=== PATIENT | male | born 1945 | race Caucasian/White ===

== ENCOUNTER 2018-10-17 11:17 | Day surgery (SDC) | payer MEDICARE, OTHER ==
--- NOTE | 2018-10-12 10:08 | HP ---
CC: Dr. Trenton Prince * HISTORY AND PHYSICAL: DATE OF PLANNED ADMISSION AND SURGERY: 10/17/18 HISTORY OF PRESENT ILLNESS: Mr. Cooney is a 72-year-old white male who is admitted with a symptomatic large left spermatocele for surgical excision. Mr. Cooney was referred to my office by Dr. Trenton Prince because of a 3 weeks' history of progressive painful left scrotal enlargement. The pain was radiating to the left inguinal area. He did not have any associated voiding symptoms. There is no past history of any scrotal trauma or scrotal surgery. The patient was evaluated by Dr. Prince, who started him on a course of Bactrim because of possible epididymitis. He also ordered scrotal ultrasound which showed a large left spermatocele. No other abnormalities were noted. I evaluated the patient in my office on 10/09/18. I reviewed the scrotal ultrasound and performed a physical examination and the findings were consistent with a multiloculated left spermatocele measuring about 10 cm in diameter. Because of the size of the spermatocele and its symptomatic nature, the patient decided to proceed with a left spermatocelectomy. PAST HISTORY: Relevant for carcinoma of the prostate for which he underwent a robotic radical prostatectomy at the [facility] in October 2004. He has done very well and has had no recurrent disease and his PSA has remained 0. He has normal voiding and normal erectile function. PAST MEDICAL HISTORY AND SYSTEM REVIEW: He has history of coronary artery disease which is managed medically and the patient was found not to be a candidate for revascularization. He was evaluated on 10/05/18 by his billet cutter, Dr. Job Farooq, at the [facility]. I am including a copy of his consultation note. The patient was cleared for the surgery by Dr. Farooq. Dr. Farooq also felt that it is safe for him to discontinue the Plavix in preparation for the procedure. He has a relatively good exercise tolerance. The patient is otherwise in good health. MEDICATIONS: The patient is maintained on the following medications: 1. Lisinopril 10 mg daily. 2. Metoprolol 25 mg daily. 3. One baby aspirin. 4. Nitroglycerin sublingual as needed. 5. Vitamin D, vitamin B12, folic acid, and magnesium supplements. 6. Plavix, discontinued pre op. ALLERGIES: He has no allergies to medications. FAMILY HISTORY: Negative for diseases. SOCIAL HISTORY: He is a nonsmoker. PHYSICAL EXAMINATION GENERAL: Pleasant, healthy, and fit-looking white male, who looks good for his age. VITAL SIGNS: Blood pressure 120/80, pulse of 60. LUNGS: Clear. HEART: Regular and rhythmic. No murmurs. ABDOMEN: Soft. No masses, no tenderness, and no CVA tenderness. EXTERNAL GENITALIA: He is circumcised. There is a large bilobular cystic mass occupying the upper left hemiscrotum and extending into the lower inguinal area measuring about 10 cm in diameter. It is moderately tender to exam. It is consistent with a left spermatocele. The testicle is felt inferior to the above mass and feels otherwise normal. No inguinal hernias noted. The right scrotal contents feel normal. EXTREMITIES: No edema. IMPRESSION: 1. Symptomatic large left spermatocele. 2. History of prostate carcinoma, status post radical prostatectomy with good results. 3. Coronary artery disease. Stable with good exercise tolerance on medical treatment. Cleared by his Infantryman for this surgery. PLAN: For left spermatocelectomy. I discussed the operation with the patient and his . Some of the potential complications including infection and hematoma were discussed. All their questions were answered. [id number] #: [id number] KEN
[~2018-10-17 11:17] MED LIST: Buffered Lidocaine 0.9% SYRIN* 5 ML/SYR SYRINGE INTRADERM ONE; Lactated Ringers 1000 ML Bag* 1,000 ML IV SCH
[2018-10-17] MEDS ORDERED: ceFAZolin 2 GM PREMIX in ORs 2 GM/50 ML BAG IVPB ONE (12:14)
[2018-10-17] MEDS ORDERED: Bupivacaine 0.5%* 50 ML VIAL ONE (12:57)
[2018-10-17] MEDS ORDERED: fentaNYL* 50 MCG/ML 2 ML VIAL (100 MCG VIAL) ONE ×2 (13:29→16:04)
[2018-10-17] MEDS ORDERED: Dexamethasone IV* 4 MG/ML 1 ML (4 MG) ONE (13:38)
[2018-10-17] MEDS ORDERED: Propofol* 10 MG/ML 20 ML BTL ONE (13:38)
[2018-10-17] MEDS ORDERED: Ondansetron INJ* 2 MG/ML VIAL ONE (13:38)
[2018-10-17] MEDS ORDERED: Naloxone* 0.4 MG/ML 1 ML VIAL IV PRN (13:57)
[2018-10-17] MEDS ORDERED: oxyCODONE/Acetamin 5/325 MG* TAB PO PRN (13:57)
[2018-10-17] MEDS ORDERED: Lidocaine 2% PF * 5 ML VIAL ONE (14:47)
[2018-10-17] MEDS ORDERED: oxyCODONE/Acetamin 5/325 MG* TAB ONE (16:04)
[2018-10-17] MEDS ORDERED: HYDROmorphone INJ1* 1 MG/ML SYRINGE ONE (16:07)
[2018-10-17] MEDS: HYDROmorphone INJ1* 1 MG/ML SYRINGE IV PRN ×2 (16:10→16:20)
[2018-10-17 16:20] VITALS: BP 137/87
--- NOTE | 2018-10-17 22:24 | OP ---
CC: Dr. Trenton Prince * DATE OF OPERATION: 10/17/18 - [facility] DATE OF : 43 SURGEON: Dr. Oliver. ANESTHESIOLOGIST: Dr. Reyes. ANESTHESIA: General. PRE-OP DIAGNOSIS: Symptomatic left spermatocele. POST-OP DIAGNOSIS: Symptomatic left spermatocele. OPERATIVE PROCEDURE: 1. Left scrotal exploration. 2. Left spermatocelectomy and left epididymectomy. INDICATION FOR PROCEDURE: Mr. Cooney is a 72-year-old white male who was referred by Dr. Prince because of 3- to 4-weeks' history of progressive left scrotal enlargement and left scrotal pain. The condition was significantly bothersome, interfering with his physical activities. Scrotal ultrasound confirmed the presence of a large left spermatocele. No other abnormalities were noted. Because of the above history and findings and the symptomatic nature of his condition, surgical exploration and excision was recommended. PATHOLOGY: Upon left scrotal exploration, there was a 7 cm left spermatocele. The testicle looked normal. There were no intratesticular masses. No hydrocele and no inguinal hernias were noted. DESCRIPTION OF PROCEDURE: After successful general anesthesia, the patient was placed in the supine position and was prepped and draped for scrotal exploration. A transverse incision was carried in the anterior mid hemiscrotum and was deepened through the dartos muscle. The tunica vaginalis was identified and was dissected and then opened. The testicle and the attached spermatocele were delivered through the incision. Careful inspection showed no other significant pathology. The epididymis was redundant and was adherent to the spermatocele. The spermatic cord and the spermatic vessels coursing over the spermatocele were identified. They were carefully dissected and peeled off the spermatocele and preserved. The spermatocele was then dissected all the way to its origin from the testis and the epididymis. The spermatocele was then excised intact and sent for pathology. The redundant epididymis was then excised and its stump tied with 4-0 Vicryl tie. The spermatic vessels were all intact and the testis had normal vascularity and appearance. The tunica vaginalis was then everted and approximated to itself using running suture of 4-0 Vicryl. Good hemostasis was then achieved. The scrotal cavity was irrigated with saline. A Regina drain was left in the scrotal cavity and brought out through the lower aspect of the scrotum. The testis was then replaced in the scrotal cavity. The scrotal incision was then closed using running 4-0 Vicryl for the dartos muscle and interrupted 4-0 chromic sutures for the skin. A total of 8 cc of 0.5% Marcaine without epinephrine was injected in the incision for postoperative analgesia. The Regina drain was transfixed to the skin with a Prolene suture. A dressing was applied. The patient tolerated the procedure well and left the operating room in good condition. BLOOD LOSS: The blood loss was negligible. SPECIMEN: The specimen was left spermatocele and left epididymis. COUNTS: All the counts were correct. [id number]/CPS #: [id number] MTDD
== END 2018-10-17 16:53 | disposition home or self-care (01) ==
LOC: OR 11:17
PROVIDERS: ATTEND Urology
DX: N43.41 Spermatocele of epididymis, single (principal); Z85.46 Personal history of malignant neoplasm of prostate; I25.10 Atherosclerotic heart disease of native coronary artery without angina pectoris; I10 Essential (primary) hypertension; R06.02 Shortness of breath; Z79.01 Long term (current) use of anticoagulants; K21.9 Gastro-esophageal reflux disease without esophagitis; M19.90 Unspecified osteoarthritis, unspecified site
CPT/HCPCS: 88304; 88305; A9270-GY; J0690; J1100; J1170; J2405; J2704; J3010

== ENCOUNTER 2020-02-17 14:52 | Inpatient (IN) | payer MEDICARE, OTHER ==
--- NOTE | 2020-02-17 15:12 | ED ---
HPI Chest Pain - HPI Summary HPI Summary: 74 y/o M with hx MIs and 13 stents brought in by EMS c/o 12/09 mid sternal chest pain and shortness of breath starting today with exertion. Hx chest pain with exertion. Today, patient was ambulating up stair steps when he developed mid sternal chest pain and shortness of breath. He states his symptoms today similar to previous MIs. Patient took NTG and aspirin 324 mg x5 with some improvement in symptoms. Last stents placed here 4 years ago. Patient is followed by Dr. Farooq at [facility] in [place]. Medications reviewed. Patient is on Plavix. Allergies reviewed. - History of Current Complaint Time Seen by Provider: 02/17/20 14:54 Hx Obtained From: Patient Onset/Duration: Started Hours Ago, Still Present Timing: Constant Current Severity: Mild Pain Intensity: 2 Pain Scale Used: 0-10 Numeric Chest Pain Location: Mid Sternal Aggravating Factor(s): Exertion Alleviating Factor(s): NTG 123, EMS Tx - aspirin 324 mg Associated Signs and Symptoms: Positive: Shortness of Breath - Additional Pertinent History Primary Care Physician: [id number] - Allergy/Home Medications Allergies/Adverse Reactions: Allergies Allergy/AdvReac Type Severity Reaction Status Date / Time DAIRY Allergy Diarrhea Uncoded 09/04/19 09:43 Home Medications: Home Medications Atorvastatin* [Lipitor 80 MG*] 80 mg PO 2100 tab 08/04/16 [Rx Confirmed ] Aspirin 81 mg CHEW TAB* 81 mg PO QAM 10/12/18 [History Confirmed 02/17/20] Cyanocobalamin (Vitamin B-12) [Vitamin B-12] 1,000 mcg SL QAM 10/12/18 [History Confirmed 02/17/20] Clopidogrel TAB* [Plavix TAB*] 75 mg PO DAILY 02/17/20 [History Confirmed ] Cyclosporine 0.05% OPHTH (NF) [Restasis 0.05% OPHTH] 1 drop BOTH EYES BID [History Confirmed 02/17/20] Lisinopril TAB* [Prinivil TAB*] 10 mg PO DAILY 02/17/20 [History Confirmed 02/16] Metoprolol Succinate XL TAB* [Toprol XL TAB*] 50 mg PO DAILY 02/17/20 [History Confirmed 02/17/20] Multivitamins/Minerals TAB* [Theragran/minerals TAB*] 1 tab PO DAILY 02/17/20 [ History Confirmed 02/17/20] Nitroglycerin TAB 0.4 MG* 0.4 mg SL Q5M PRN 02/17/20 [History Confirmed 02/17/20 ] OXcarbazepine TAB(*) [Trileptal 300 mg TAB(*)] 300 mg PO BID 02/17/20 [History Confirmed 02/17/20] PMH/Surg Hx/FS Hx/Imm Hx Endocrine/Hematology History: Denies: Hx Diabetes Cardiovascular History: Reports: Hx Coronary Artery Disease - 11 STENTS FROM 1997 - 2011 ON PLAVIX, Hx Hypertension - CONTROL WITH MEDICATION, Hx Myocardial Infarction - x2, Other Cardiovascular Problems/Disorders - PROGRESSIVE HEART DISEASE / CHOLESTEROL CONTROL WITH MEDS Denies: Hx Pacemaker/ICD GI History: History: Reports: Other Problems/Disorders - HISTORY OF PROSTATE CANCER AND SPERMATOCELE Musculoskeletal History: Reports: Hx Arthritis - GENERALIZED, Other Musculoskeletal History - HX OF POLIO A CHILD Sensory History: Reports: Hx Contacts or Glasses - GLASSES Opthamlomology History: Reports: Hx Contacts or Glasses - GLASSES Neurological History: Reports: Hx Headaches - CONTROL WITH MEDICATATION, Hx Nerve Disease - TRIGEMINAL NEURALGIA, Other Neuro Impairments/Disorders - HISTORY OF POLIO A CHILD - Surgical History Surgical History: Yes Surgery Procedure, Year, and Place: 2016 stents. 2005 LAPAROSCOPIC PROSTATECTOMY, [place], [place]. 1997 - 2011 CARDIAC STENTS X 11, [facility], [facility]. ABDOMINAL HERNIA REPAIR. 2009 LEFT HAND SURGERY, [facility]. BILATERAL CORRECTIVE FOOT SURGERY, [facility]. LEFT TOTAL KNEE [place]. TRIGIMINAL PROCEDURE 3 YEARS AGO [place]. LAMINECTOMY MAIXMILIANO 40 YEARS AGO. TONISLECTOMY A CHILD. APPENDECTOMY A CHILD Hx Anesthesia Reactions: No - Family History Family History: No FHx of malignant hyperthermia. No FHx of Anesthesia Reaction - Social History Alcohol Use: Daily Substance Use Type: Reports: None Hx Tobacco Use: Yes Smoking Status (MU): Former Smoker Have You Smoked in the Last Year: No Review of Systems Positive: Chest Pain Positive: Shortness Of Breath All Other Systems Reviewed And Are Negative: Yes Physical Exam - Summary Physical Exam Summary: Constitutional: Well-developed, Well-nourished, Alert. (-) Distressed Skin: Warm, Dry HENT: Normocephalic; Atraumatic Eyes: Conjunctiva normal Neck: Musculoskeletal ROM normal neck. (-) JVD, (-) Stridor, (-) Nuchal rigidity Cardio: Rhythm regular, rate normal, Heart sounds normal; Intact distal pulses; Radial pulses are 2+ and symmetric. (-) Murmur Pulmonary/Chest wall: Effort normal. (-) Respiratory distress, (-) Wheezes, (-) Rales Abd: Soft, (-) tenderness, (-) Distension, (-) Guarding, (-) Rebound Musculoskeletal: (-) Edema Lymph: (-) Cervical adenopathy Neuro: Alert, Oriented x3 Psych: Mood and affect Normal Triage Information Reviewed: Yes Vital Signs Reviewed: Yes Procedures - Sedation Patient Received Moderate/Deep Sedation with Procedure: No Diagnostics - Laboratory Result Diagrams: 02/17/20 15:25 02/17/20 15:25 Lab Statement: Any lab studies that have been ordered have been reviewed, and results considered in the medical decision making process. - EKG 1515 Cardiac Rate: NL - 80 BPM EKG Rhythm: Sinus Rhythm EKG Comparison: No Significant Change - 2016 Summary of EKG Findings: An EKG at 1515 reveals normal sinus rhythm 80 BPM. No STEMI. No acute changes. When compared to 2016, no significant change. ED physician has reviewed and interpreted this EKG. 1620 Cardiac Rate: NL - 75 BPM EKG Rhythm: Sinus Rhythm EKG Comparison: No Significant Change - From earlier today Summary of EKG Findings: An EKG at 1620 reveals normal sinus rhythm 75 BPM. No change from earlier EKG. ED physician has reviewed and interpreted this EKG. Re-Evaluation - Re-Evaluation First Eval Re-Evaluation Time: 16:18 - aware of troponin 0.27 Second Eval Re-Evaluation Time: 16:19 - will check repeat EKG Chest Pain Course/Dx - Course Course Of Treatment: 74 y/o male w hx CAD and STEMI p/w CP. - PE well appearing. NAD. EKG appears similar to prior in 2016 after cath. STEMI in 2016 had elevations in ant/lateral leads. Patient s/p nitro and aspirin with some improvement in pain. Is reporting some SOB which he attributes to CP and wearing facemask. - labs w troponin 0.27, repeat EKG unchanged, no STEMI. Pain improved at this time. Cardiology aware of patient, medicine to admit for NSTEMI /unstable angina. - Diagnoses Provider Diagnoses: Chest pain, NSTEMI (non-ST elevated myocardial infarction) - Provider Notifications Discussed Care Of Patient With: Jaciel Blakely - Agrees to consult. 1625 Dr. Leal agrees to admit patient. Time Discussed With Above Provider: 16:14 - Critical Care Time Critical Care Time: 30-74 min - Upon my evaluation, this patient had a high probability of imminent or life-threatening deterioration due to NSTEMI which required my direct attention, intervention, and personal management. I have personally provided 35 minutes of critical care time exclusive of time spent on separately billable procedures. Time includes review of laboratory data, radiology results, discussion with consultants, and monitoring for potential decompensation. Interventions were performed as documented above. Critical Care Statement: Critical care time is provided exclusive of any time spent performing procedures. Discharge ED - Sign-Out/Discharge Documenting (check all that apply): Patient Departure - Discharge Plan Condition: Stable Disposition: ADMITTED TO [facility] Referrals: Trenton Prince MD [Primary Care Provider] - - Billing Disposition and Condition Condition: STABLE Disposition: Admitted to [facility] - Attestation Statements Document Initiated by Scribe: Yes Documenting Scribe: Sandra Moralez Provider For Whom Ryan is Documenting (Include Credential): Capo Sanders MD Scribe Attestation: I, Sandra Moralez, scribed for Capo Sanders MD on 02/17/20 at 1639. Scribe Documentation Reviewed: Yes Provider Attestation: The documentation as recorded by the scribeSandra accurately reflects the service I personally performed and the decisions made by me, Capo Sanders MD Status of Scribe Document: Viewed
[2020-02-17 15:46] LABS: ABS Basophils 0.1 10^3/ul (0-0.2); ABS Eosinophils 0.3 10^3/ul (0-0.6); ABS Lymphocytes 0.8 10^3/ul (1.0-4.8); ABS Monocytes 0.8 10^3/ul (0-0.8); ABS Neutrophils 5.8 10^3/ul (1.5-7.7); Eosinophil % 3.3 %; Hematocrit 37 % (42-52); Hemoglobin 13.2 g/dL (14.0-18.0); Lymphocyte % 10.6 %; Mean Corpuscular HGB Conc 35 g/dL (31-36); Mean Corpuscular Hemoglobin 35 pg (27-31); Mean Corpuscular Volume 100 fL (80-94); Mean Platelet Volume 7.1 fL (7.4-10.4); Platelet Count 141 10^3/uL (150-450); Red Blood Count 3.76 10^6 /uL (4.18-5.48); Red Cell Distribution Width 14 % (10-15); White Blood Count 7.8 10^3/uL (3.5-10.8)
--- OUTSIDE RECORDS SUMMARY | 2020-02-17 15:58 | XMS REPORT | Continuity of Care Document ---
:1945 External Reference #:[id number] Author Name Trenton Prince M.D. (transmitted by agent of provider Rose Zhao) Address [address] [place] [address] Care Team Providers Name Role Phone Kathleen Reynoso MD - Neurology Care Team Information Hardware Engineering Manager Chai Candelaria MD - Orthopaedic Care Team Information Hardware Engineering Manager [phone] Surgery Delaney Schilling MD - Surgery of Care Team Information Hardware Engineering Manager the Hand Kemi Ma - Dermatology Care Team Information Hardware Engineering Manager [phone] Micheal Chavarria MD - Care Team Information Hardware Engineering Manager [phone] Gastroenterology Brad Flores - Neurological Surgery Care Team Information Hardware Engineering Manager Problems Active Problems Provider Date Coronary arteriosclerosis Trenton Prince M.D. Onset: 12/07/2011 Malignant tumor of prostate Trenton Prince M.D. Onset: 05/29/2013 Trigeminal neuralgia Trenton Prince M.D. Onset: 05/29/2013 Social History Type Date Description Comments Sex Unknown Tobacco Use Start: Unknown End: Former Cigarette Smoker 1/2 x 4 years Unknown Pack Daily Cigarette Use Quit - Age 20 Tobacco Use Start: Unknown End: Patient is a former smoker Unknown Exercise Type/Frequency Does not exercise Allergies, Adverse Reactions, Alerts Description No Known Drug Allergies Medications Active Medications SIG Qnty Indications Ordering Date Provider Nitroglycerin Place One Tablet 25tabs Trenton Prince M.D. 12/03/2018 0.4mg Under The Tongue Tablets Sub Every 5 Minutes For Up To 3 Doses as Needed For Chest Pain. If Chest Pain Still Persists Contact 911 Lisinopril 1 by mouth every 90tabs Quan 08/24/2016 5mg Tablets day MD Zachary Vitamin B12 1 po qd Trenton Prince M.D. 2011 100mcg Tablets Atorvastatin Calcium 1 by mouth every 90tabs Trenton Prince M.D. 12/05/2011 80mg night at bedtime Tablets Plavix one tablet by 90tabs Trenton Prince M.D. 12/05/2011 75mg Tablets mouth daily Magnesium Trenton Prince M.D. 02/03/2009 Tablets Toprol XL take one tablet 90tabs Trenton Prince M.D. 10/09/2006 50mg Tablets ER by mouth every 24HR day Folic Acid 1 qd Trenton Prince M.D. 09/09/2006 1mg Tablets Aspirin 1 PO qd 30units Trenton Prince M.D. 09/09/2006 81mg Ec Tab Iron Unknown Tablets Carbamazepine ER Take 3 Tablets Unknown 100mg By Mouth Daily Tablets ER 12HR In The Morning And 3 Tablets Every Night Immunizations CPT Code Status Date Vaccine Lot # [id number] Given 07/23/2019 Influenza Vaccine High Dose PF [id number] 88181 Given 07/09/2018 Influenza Vaccine High Dose PF [id number] 57686 Given 08/04/2017 Influenza Vaccine High Dose PF [id number] 37602 Given 08/02/2016 Influenza Virus Vaccine, Quadrivalent, 3 Yr > Quad, Preserv Free 00475 Given 07/07/2015 Influenza Vaccine High Dose PF [id number] 52378 Given 12/12/2014 Prevnar-13 Pneumococcal Conjugate Vaccine [id number] 17710 Given 08/12/2014 Influenza Virus Vaccine, Quadrivalent, 3 Yr > [id number] Quad, Preserv Free 20874 Given 09/03/2013 Influenza Vaccine-Preservative Free 3 Yrs And [id number] Above 73392 Given 07/27/2012 Influenza Vaccine-Preservative Free 3 Yrs And [id number] Above 44217 Given 2011 Tdap (Adacel) [id number] 42184 Given 06/27/2011 Zoster Vaccine [id number] 61811 Given 06/27/2011 Influenza Vaccine-Preservative Free 3 Yrs And [id number] Above 45494 Given 09/06/2010 Pneumovax 23 (PPSV23) 65+ years or high risk 2 to [id number] 63 year old 26424 Given 09/06/2010 Influenza Vaccine-Preservative Free 3 Yrs And [id number] Above 80431 Given 09/11/2008 Influenza Virus Vaccine, 3 Yrs And Above [id number] 65900 Given 08/24/2007 Influenza Virus Vaccine, 3 Yrs And Above [id number] 49254 Given 08/11/2007 DT (Adult) [id number] 27906 Given 08/29/2006 Influenza Virus Vaccine, 3 Yrs And Above [id number] Vital Signs Date Vital Result Comment 02/17/2020 1:23pm Weight 185.00 lb Weight 83.916 kg BP Systolic 127 mmHg BP Diastolic 86 mmHg Heart Rate 68 /min Body Temperature 97.8 F 06/06/2019 2:30pm Weight 168.00 lb Weight 76.205 kg BP Systolic 128 mmHg BP Diastolic 78 mmHg Heart Rate 68 /min Body Temperature 97.8 F Respiratory Rate 16 /min O2 % BldC Oximetry 97 % Results Test Acquired Date Facility Test Result H/L Range Note Laboratory test 02/12/2020 [facility] Hemoglobin A1c 5.3 % Normal 4.0-5.6 1 finding [phone] PSA Screening < 0.008 ng/mL Normal 0-4.000 2 CBC Auto 02/12/2020 [facility] White Blood 6.2 10^3/ uL Normal 3.5-10.8 Diff [phone] Count Red Blood Count 3.91 10^6/uL Low 4.18-5.48 Hemoglobin 13.7 g/dL Low 14.0-18.0 Hematocrit 39 % Low 42-52 Mean Corpuscular Volume 100 fL High 80-94 Mean Corpuscular Hemoglobin 35 pg High 27-31 Mean Corpuscular HGB Conc 35 g/dL Normal 31-36 Red Cell Distribution Width 14 % Normal 10-15 Platelet Count 195 10^3/uL Normal 150-450 Mean Platelet Volume 7.4 fL Normal 7.4-10.4 Abs Neutrophils 4.0 10^3/uL Normal 1.5-7.7 Abs Lymphocytes 1.0 10^3/uL Normal 1.0-4.8 Abs Monocytes 0.6 10^3/uL Normal 0-0.8 Abs Eosinophils 0.5 10^3/uL Normal 0-0.6 Abs Basophils 0.1 10^3/uL Normal 0-0.2 Abs Nucleated RBC 0.0 10^3/uL Granulocyte % 64.2 % Lymphocyte % 16.4 % Monocyte % 10.0 % Eosinophil % 8.1 % Basophil % 1.3 % Nucleated Red Blood Cells % 0.0 Comp Metabolic 02/12/2020 [facility] Sodium 134 mmol/ L Low 135-145 Panel [phone] Potassium 4.4 mmol/L Normal 3.5-5.0 Chloride 101 mmol/L Normal 101-111 Co2 Carbon Dioxide 29 mmol/L Normal 22-32 Anion Gap 4 mmol/L Normal 2-11 Glucose 101 mg/dL High 70-100 Blood Urea Nitrogen 17 mg/dL Normal 6-24 Creatinine 0.85 mg/dL Normal 0.67-1.17 BUN/Creatinine Ratio 20.0 Normal 8-20 Calcium 9.2 mg/dL Normal 8.6-10.3 Total Protein 6.4 g/dL Normal 6.4-8.9 Albumin 3.9 g/dL Normal 3.2-5.2 Globulin 2.5 g/dL Normal 2-4 Albumin/Globulin Ratio 1.6 Normal 1-3 Total Bilirubin 0.60 mg/dL Normal 0.2-1.0 Alkaline Phosphatase 88 U/L Normal 34-104 Alt 28 U/L Normal 7-52 Ast 28 U/L Normal 13-39 Egfr Non- 87.9 >60 Egfr 106.3 >60 3 Laboratory test 02/12/2020 [facility] Vitamin D 54.6 ng/mL High 20-50 4 finding [phone] Total 25(Oh) Vitamin B12 664 pg/mL Normal 180-914 5 Lipid Profile 02/12/2020 [facility] Triglycerides 115 mg/dL 6 (Trig/Chol/HDL) [phone] Cholesterol 185 mg/dL 7 HDL Cholesterol 56.7 mg/dL 8 LDL Cholesterol 105 mg/dL 9 1 Therapeutic target for the treatment of diabetes mellitus patients is <7% HBA1C, and in selective patients <6.0%. Please refer to [place] [employer] Association diabetic care guidelines for further information. 2 Serum levels of PSA measured using the Kelin Hytle DXI Hybritech immunoassay should not be interpreted as absolute evidence of the presence or absence of disease. The PSA value should be used in conjunction with other pertinent clinical diagnostic procedures. A PSA value in the range of 0.1 to 0.6 ng/ml is indeterminate if being used as an indicator of recurrent or residual disease. The values obtained with different assay methods or kits cannot be used interchangeably. 3 Because ethnic data is not always readily available, this report includes an eGFR for both -Americans and non- Americans. The National Kidney Disease Education Program (NKDEP) does not endorse the use of the MDRD equation for patients that are not between the ages of 18 and 70, are , have extremes of body size, muscle mass, or nutritional status, or are non- or non-. According to the National Kidney Foundation, irrespective of diagnosis, the stage of the disease is based on the level of kidney function: Stage Description GFR(mL/min/1.73 m(2)) 1 Kidney damage with normal or decreased GFR 90 2 Kidney damage with mild decrease in GFR 60-89 3 Moderate decrease in GFR 30-59 4 Severe decrease in GFR 15-29 5 Kidney failure <15 (or dialysis) 4 Total 25-Hydroxyvitamin D2 and D3 (25-OH-VitD) <10 ng/mL (severe deficiency) 10-19 ng/mL (mild to moderate deficiency) 20-50 ng/mL (optimum levels) 51-80 ng/mL (increased risk of hypercalciuria) >80 ng/mL (toxicity possible) 5 Normal Range 180 to 914 Indeterminate Range 145 to 180 Deficient Range <145 6 Desirable: <150 Borderline High: 150-199 High: 200-499 Very High: >500 7 Desirable: <200 Borderline High: 200-239 High: >239 8 Low: <40 Desirable: 40-60 High: >60 9 Desirable: <100 Near Optimal: 100-129 Borderline High: 130-159 High: 160-189 Very High: >189 Procedures Date Code Description Status 10/30/2006 [id number] Colonoscopy Completed Medical Devices Description No Information Available Encounters Type Date Location Provider Dx Diagnosis Office Visit 02/17/2020 [facility] Trenton Prince M.D. R07.9 Chest pain , 1:15p unspecified Assessments Date Code Description Provider 02/17/2020 R07.9 Chest pain, unspecified Trenton Prince M.D. Plan of Treatment 02/17/2020 - Trenton Prince M.D.R07.9 Chest pain, unspecifiedComments:Given his known CAD and the severity of his symptoms he will call an ambulance.I called to notify the ER. Functional Status Description No Information Available Mental Status Description No Information Available Referrals Description No Information Available
[2020-02-17 16:17] LABS: Troponin I 0.27 ng/mL (<0.03)
[2020-02-17 16:28] LABS: ALT 25 U/L (7-52); AST 25 U/L (13-39); Albumin 3.7 g/dL (3.2-5.2); Albumin/Globulin Ratio 1.5 (1-3); Alkaline Phosphatase 77 U/L (34-104); Anion Gap 5 mmol/L (2-11); BUN/Creatinine Ratio 26.5 (8-20); Blood Urea Nitrogen 22 mg/dL (6-24); CO2 Carbon Dioxide 29 mmol/L (22-32); Chloride 103 mmol/L (101-111); EGFR African American 109.3 (>60); EGFR Non-African American 90.3 (>60); Globulin 2.5 g/dL (2-4); Glucose 80 mg/dL (70-100); Potassium 4.4 mmol/L (3.5-5.0); Sodium 137 mmol/L (135-145); Total Protein 6.2 g/dL (6.4-8.9)
[2020-02-17] MEDS ORDERED: Nitro 2% OINT* (Nitroglycerin) 1 INCH/PAK PAK TOPICAL ONE (17:17)
[2020-02-17] MEDS ORDERED: Morphine 4 MG/ML VIAL (1 ml) 4 MG/ML VIAL IV ONE (17:17)
[2020-02-17] MEDS ORDERED: Heparin VIAL(*) 5000 UNITS/ML VIAL (FIVE THOUSAND) IV SCH (18:00)
[2020-02-17] MEDS ORDERED: Iohexol 350* (CONTRAST) 500 ML MDV IV ONE (18:17)
--- NOTE | 2020-02-17 19:05 | HP ---
CC: Dr. Prince; [facility]* HISTORY AND PHYSICAL: DATE OF ADMISSION: 02/17/20 PRIMARY CARE PROVIDER: Dr. Prince, [facility]. CHIEF COMPLAINT: Chest pain. HISTORY OF PRESENT ILLNESS: Mr. Cooney is a 74-year-old male who has an extensive cardiac history, in that he states he has 13 stents, his most recent KS was in 2016, who presents to the emergency room with complaint of chest pain. The patient states he started his day using the treadmill for approximately 20 minutes. At that point, he had no discomfort. He was outside and worked for approximately 2 to 3 hours. He then started to get ready for his telemedicine visit with Dr. Prince. He needed to grab something from the basement, went down 10 to 12 steps and then walked back up these steps and in doing so developed severe pressure in his chest without radiation. He felt very short of breath. He had no associated nausea or vomiting. He felt complete exhaustion and slight disorientation. He took, he believes, 1 to 2 nitroglycerin tablets which helped the discomfort some. He then had his telemedicine visit with Dr. Prince after sitting quiet for approximately 15 to 20 minutes. He did feel somewhat better at that point. During the visit with Dr. Prince, it was recommended that he contact 911 and be brought to the emergency room. The patient states that he continues to have chest pressure and shortness of breath at this time. He states that he feels as if something is wrong. The symptoms he is experiencing at this point feels similar but not exactly the same as his very first KS. The patient took 5 baby aspirin today. In unrelated complaint the patient states that he has had progressive weakness of the right arm and leg, worse in the legs than the arm over the last 10-1/2 months. In addition he states that his voice had become difficult to get out over the last 1 year. He has an appointment with Dr. Barragan coming up for early february. Also of note, in November 2019 while he was in [place], he fell and sustained a hematoma to the right hip. He notes that the hematoma spread to just down below his knee. He notes the leg was swollen at that time. He states that he was relatively immobile while recovering from that hematoma. Approximately 4 weeks ago, he drove back from [place]. He did not notice any swelling in his legs. PAST MEDICAL HISTORY: 1. STEMI in 2016. 2. Hypertension. 3. Hyperlipidemia. 4. Trigeminal neuralgia. 5. History of prostate cancer. 6. Right upper and lower extremity weakness. PAST SURGICAL HISTORY: 1. Bilateral cataract extraction. 2. Left total knee arthroplasty. 3. Bilateral toe surgery. 4. Ventral hernia repair. 5. Spermatocelectomy. 6. Epididymectomy. 7. Robotic radical prostatectomy. 8. Left hand surgery. 9. Tonsillectomy. 10. Appendectomy. 11. Laminectomy. MEDICATIONS: 1. Lipitor 80 mg p.o. daily. 2. Folic acid mg p.o. daily. 3. Magnesium 250 mg p.o. daily. 4. Baby aspirin (has been on hold since November, though the patient took 5 today). 5. Metoprolol succinate 50 mg p.o. daily. 6. Lisinopril 10 mg p.o. daily. 7. Vitamin B12 1000 mcg p.o. daily. 8. Oxcarbazepine 300 mg p.o. twice daily. 9. Nitroglycerin 0.4 mg SL q.5 minutes p.r.n. chest pain. 10. Probiotic 1 cap p.o. daily. 11. Plavix 75 mg p.o. daily. ALLERGIES: No known drug allergies. He is lactose intolerant. FAMILY HISTORY: Mom around the age of 60 from ALS. Dad is . He had early coronary artery disease with first KS in his 50s. He of leukemia. SOCIAL HISTORY: The patient smoked for a very brief period of time approximately 53 years ago. He drinks 1 alcoholic beverage daily. 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 He is . He has 2 children. He indicates that his , Julianne, will be his healthcare proxy. REVIEW OF SYSTEMS: Complete 11-system review of systems is obtained. Pertinent positives and negatives were as per HPI and otherwise negative. PHYSICAL EXAMINATION GENERAL: The patient is a well-developed, elderly male, seen sitting up in the stretcher, appearing to be in no acute distress. VITAL SIGNS: Blood pressure 124/72, pulse 83, respirations 14, temperature 97.6 , O2 sat 97% on room air. HEENT: Pupils are equal. Extraocular muscles are intact. Oropharynx is clear and moist. There is no submandibular, cervical or supraclavicular adenopathy. PULMONARY: Lungs are clear to auscultation bilaterally. CARDIAC: Normal S1 and S2. Regular rate and rhythm. I do no appreciate any murmurs. There is trace to 1+ right lower extremity edema. There is no edema of the left lower extremity. ABDOMEN: Bowel sounds are present. Abdomen is soft, nontender, and nondistended. MUSCULOSKELETAL: There is no cyanosis or clubbing of the digits. There is full active range of motion of all 4 extremities. SKIN: Warm and dry. There are no rashes. NEUROLOGIC: Cranial nerves II through XII are grossly intact. Sensation is intact to light touch. Strength in the upper extremities is normal on the left. Question some functional weakness on the right. Lower extremity strength is not tested. PSYCH: The patient is alert. He is oriented x3. He does become tearful when I informed him that his troponin could indicate that he is having an KS if positive. DIAGNOSTIC STUDIES/LAB DATA: WBC 7.8, hemoglobin 13.2, hematocrit 37, and platelets 141. Sodium 137, potassium 4.4, chloride 103, CO2 of 29, BUN 22, creatinine 0.83, glucose 80, calcium 9.0, bilirubin 0.4, AST 25, ALT 25, alk phos 77, troponin 0.27, albumin 3.7. EKG reveals normal sinus rhythm. Question minimal ST elevations in lead V3. There are otherwise nonspecific T wave abnormalities laterally. Chest x-ray to my interpretation appears clear without any infiltrate. ASSESSMENT AND PLAN: Mr. Cooney is a 74-year-old male with an extensive cardiac history, hypertension, and hyperlipidemia, who presented to the emergency room with complaints of chest pain after walking up a flight of stairs. 1. Ehc-NB-wrxoaapxd myocardial infarction. At this point, my suspicion is the patient is having a lhy-RA-ylvafkwvi myocardial infarction. His troponin is elevated at 0.27. He continues to have chest pain at this point. He will be treated with nitro paste as well as morphine p.r.n. pain. We will see if we can get him pain-free. He will be started on a heparin drip as well. He will also continue on aspirin and his Plavix. Of note, the patient did have recent long distance travel approximately 4 weeks ago from [place] and prior to that he was laid up for quite some time after falling and having a hematoma involving in his right leg putting DVT and pulmonary embolism as a high possibility is causing his symptoms at this point. The patient will undergo CTA of the chest now. If the CTA of the chest is negative, Cardiology consultation will be requested. If his pain is not controlled and he is negative for pulmonary embolism, we will request evaluation by Cardiology this evening for consideration of cardiac catheterization. Lipid panel has been ordered for the morning as is the hemoglobin A1c. As above, he will continue on his aspirin, Plavix, Lipitor, metoprolol, and lisinopril. 2. Hypertension. Blood pressure is under excellent control. Continue lisinopril and metoprolol. 3. Hyperlipidemia. Continue Lipitor high dose. Lipid profile will be obtained in the morning. 4. Trigeminal neuralgia. Continue oxcarbazepine 300 mg twice daily. 5. DVT prophylaxis: According to the Adult Thrombosis Prophylaxis Risk Factor Assessment Guide, the patient has a total risk factor score of 4, making him high risk. He is on a heparin drop for presumed uem-AT-pmhebtmyb myocardial infarction and this will act as a DVT prophylaxis. 6. Code status is full. TIME SPENT: Sixty-five minutes was spent admitting this patient. [id number]/CPS #: [id number] KEN
[2020-02-17] MEDS: Heparin DRIP 25,000 UNITS(*) 25,000 UNITS/500 ML BAG IV SCH (19:24)
[2020-02-17 19:29] LABS: Troponin I 0.57 ng/mL (<0.03)
[2020-02-17] MEDS ORDERED: NS 0.9% 1000 ML** 1,000 ML IV SCH (19:30)
[2020-02-17] MEDS: OXcarbazepine TAB(*) 300 MG PO SCH (20:46)
[2020-02-17] MEDS: Atorvastatin* 80 MG TAB PO SCH (20:47)
[2020-02-17] MEDS ORDERED: Nitro 2% OINT* (Nitroglycerin) 1 INCH/PAK PAK TOPICAL SCH (23:30)
[2020-02-17] MEDS ORDERED: Nitro Patch/OINT Remove TOPICAL SCH (23:30)
[2020-02-18] MEDS: Morphine INJ* 2 MG/ML 1 ML SYRINGE (TWO MG - NEW SYRINGE VERSION) IV PRN ×2 (06:55→13:38)
[2020-02-18] MEDS ORDERED: Perflutren Lipid Microsphere* 3 ML VIAL ONE (08:09)
[2020-02-18] MEDS: Clopidogrel TAB* 75 MG PO SCH (08:46)
[2020-02-18] MEDS: Aspirin 81 mg CHEW TAB* 81 MG TAB.CHEW PO SCH (08:46)
[2020-02-18] MEDS: Metoprolol Succinate XL TAB* 50 MG PO SCH (08:46)
[2020-02-18] MEDS: Lisinopril TAB* 10 MG PO SCH (08:47)
[2020-02-18] MEDS: Multivitamins/Minerals TAB PO SCH (08:48)
[2020-02-18] MEDS: OXcarbazepine TAB(*) 300 MG PO SCH ×2 (08:48→19:55)
--- NOTE | 2020-02-18 09:21 | ECHO ---
*[facility]* [place] [address] Fax #: [phone] Transthoracic Echocardiogram Patient: Romeo Cooney : 1945 Study Date: 02/18/2020 Age: 74 Gender: M HR: 84 bpm Height: 70 in /177.8 cm BSA: 1.92 m^2 Weight: 164.7 lb /74.8 kg BMI: 23.7 kg/m^2 *Information Technology Security Analyst: * Chuyita Anderson *Referring Physician: * Russell Boone *Reading Physician: * Jaciel Blakely MD Indications: Pulmonary Embolism History: Coronary artery disease. Risk factors: Former tobacco use. Hypertension. Dyslipidemia. Labs, prior tests, procedures, and surgery: Catheterization. There was a stenosis which was treated with a stent. Conclusions Summary: - Left ventricle: Systolic function is at the lower limits of normal. The estimated ejection fraction is 50-55%. Wall motion is normal; there are no regional wall motion abnormalities. - Right ventricle: Systolic function is normal. - Mitral valve: There is trace regurgitation. - Aortic valve: Transvalvular velocity is within the normal range. There is no evidence of stenosis. - Tricuspid valve: There is mild regurgitation. - Pulmonary arteries: Systolic pressure is mildly to moderately increased, estimated to be 45 mm Hg. - Impressions: The study is unchanged since the study of 08/01/2016. Study data: Transthoracic echocardiogram. Procedure: Transthoracic echocardiography was performed. Image quality was suboptimal. Intravenous Definity , 2 mlswas administered. Complete 2D, spectral Doppler, and color flow Doppler. Location: Bedside. Patient status: Inpatient. Patient room number: 442-02. Comparison is made to the study of 08/01/2016. Findings Left ventricle: The cavity size is normal. Wall thickness is at the upper limits of normal. Systolic function is at the lower limits of normal. The estimated ejection fraction is 50-55%. Wall motion is normal; there are no regional wall motion abnormalities. Left ventricular diastolic function parameters are normal. Right ventricle: The cavity size is normal. Systolic function is normal. Ventricular septum: The ventricular septum is normal. Left atrium: The atrium is moderately dilated. Right atrium: The atrium is mildly dilated. Atrial septum: No defect or patent foramen ovale is identified. Mitral valve: The valve is structurally normal. There is no evidence of stenosis. There is trace regurgitation. Aortic valve: The valve is trileaflet. The leaflets are mildly calcified. Cusp separation is normal. Transvalvular velocity is within the normal range. There is no evidence of stenosis. There is no regurgitation. Tricuspid valve: The valve is structurally normal. There is no evidence of stenosis. There is mild regurgitation. Pulmonic valve: The valve is structurally normal. There is no evidence of stenosis. There is trace regurgitation. Aorta: The aortic root appears normal. The aortic arch appears normal. Pericardium: There is no significant pericardial effusion. Pulmonary arteries: Systolic pressure is mildly to moderately increased, estimated to be 45 mm Hg. Systemic veins: Inferior vena cava: The vessel is normal in size. There is (>= 50%) respiratory change in the IVC dimension. Pulmonary veins: The Pulmonary veins appear normal. Measurements Left ventricle Value Ref Aortic valve Value Ref RAFAT, LAX 4.4 cm 4.2 - 5.8 Peak v, S 1.01 m/sec ----- ESD, LAX 2.9 cm 2.5 - 4.0 VTI, S 22.7 cm ----- FS, LAX 34 % 25 - 43 Mean grad, S 2.0 mm Hg ----- PW, ED, LAX (H) 1.2 cm 0.6 - 1.0 Peak grad, S 4.0 mm Hg ----- E', lat salomon, TDI (L) 5.4 cm/sec >=10.0 LVOT/AV, VTI ratio 0.76 -- --- E/e', lat salomon, 13 ARVIND, VTI 2.38 cm^2 ----- TDI ARVIND, Vmax 2.46 cm^2 ----- LVOT Value Ref Mitral valve Value Ref Diam, S 2.00 cm Peak E 0.69 m/sec ----- Area 3.1 cm^2 Peak A 0.77 m/sec ----- Peak adriano, S 0.79 m/sec Decel time 235 ms ----- VTI, S 17.2 cm Peak E/A ratio 0.9 ----- Mean grad, S 1 mm Hg SV 54 ml Pulmonic valve Value Ref Peak v, S 0.63 m/sec ----- Ventricular septum Value Ref Peak grad, S 2.0 mm Hg ----- IVS, ED (H) 1.2 cm 0.6 - 1.0 Tricuspid valve Value Ref Right ventricle Value Ref TR peak v (H) 3.17 m/sec <=2.8 RAFAT, LAX 3.3 cm Peak RV-RA grad, S 40 mm Hg ----- RAFAT minor ax, (H) 3.9 cm 1.9 - 3.5 Max TR adriano 3.17 m/sec ----- A4C mid Aortic root Value Ref Left atrium Value Ref Root diam 3.7 cm <4.1 AP dim, ES 3.70 cm 3.00 - 4.00 Ascending aorta Value Ref ML dim, A4C 4.9 cm AAo AP diam, S 3.2 cm ----- SI dim, A4C 6.2 cm Vol/bsa, ES, 1-p (H) 47 ml/m^2 12 - 37 Aortic arch Value Ref A4C Arch diam 3.6 cm ----- Right atrium Value Ref Inferior vena cava Value Ref SI dim, ES (H) 5.4 cm 3.4 - 5.3 Diam 2.5 cm ----- ML dim, ES, A4C (H) 5.1 cm 2.6 - 4.4 SI dim, ES, A4C (H) 5.4 cm 3.4 - 5.3 Legend: (L) and (H) santana values outside specified reference range. Prepared and electronically signed by Jaciel Blakely MD 02/18/2020 09:20
[2020-02-18 09:32] LABS: ABS Basophils 0.1 10^3/ul (0-0.2); ABS Eosinophils 0.3 10^3/ul (0-0.6); ABS Lymphocytes 0.8 10^3/ul (1.0-4.8); ABS Monocytes 0.5 10^3/ul (0-0.8); ABS Neutrophils 4.7 10^3/ul (1.5-7.7); Eosinophil % 5.3 %; Hematocrit 39 % (42-52); Hemoglobin 13.3 g/dL (14.0-18.0); Lymphocyte % 12.7 %; Mean Corpuscular HGB Conc 34 g/dL (31-36); Mean Corpuscular Hemoglobin 34 pg (27-31); Mean Corpuscular Volume 101 fL (80-94); Mean Platelet Volume 6.8 fL (7.4-10.4); Nucleated Red Blood Cells % 0.1; Platelet Count 165 10^3/uL (150-450); Red Blood Count 3.87 10^6 /uL (4.18-5.48); Red Cell Distribution Width 14 % (10-15); White Blood Count 6.5 10^3/uL (3.5-10.8)
[2020-02-18 10:08] LABS: Calcium 8.8 mg/dL (8.6-10.3); EGFR African American 115.7 (>60); EGFR Non-African American 95.6 (>60); Potassium 4.1 mmol/L (3.5-5.0)
--- NOTE | 2020-02-18 10:30 | PN ---
Subjective Date of Service: 02/18/20 Interval History: Pt reports that he continues to have pain with deep inspiration and required morphine to tolerated deep breaths. pt denies chest pain presently. pt reports also that his son has hx of blood clot in his leg. Denies constant chest pain or pressure presently. Pt also reports that he has been getting out of bed to use urinal at bedside and became extremely SOB. pt informed that he should not be getting out of bed without assistance as he has a great bleeding risk presently and should not risk falling. Family History: Unchanged from Admission Social History: Unchanged from Admission Past Medical History: Unchanged from Admission Objective Active Medications: Aspirin (Aspirin 81 Mg Chew Tab*) 81 mg PO QAM [facility] Last Admin: 02/18/20 08:46 Dose: 81 mg Atorvastatin Calcium (Lipitor*) 80 mg PO 2100 [facility] Last Admin: 02/17/20 20:47 Dose: 80 mg Clopidogrel Bisulfate (Plavix Tab*) 75 mg PO DAILY [facility] Last Admin: 02/18/20 08:46 Dose: 75 mg Heparin Sodium (Porcine) (Heparin Vial(*)) 0 units IV .FOR HEPARIN BOLUSES [facility] Last Admin: 02/17/20 19:23 Dose: 4,000 units Heparin Sodium/Dextrose (Heparin Drip 25,000 Units(*)) 25,000 units in 500 mls @ 0 mls/hr IV PER RATE [facility]; Protocol Last Admin: 02/17/20 19:24 Dose: 18 mls/hr Lisinopril (Prinivil Tab*) 10 mg PO DAILY [facility] Last Admin: 02/18/20 08:47 Dose: 10 mg Metoprolol Succinate (Toprol Xl Tab*) 50 mg PO DAILY [facility] Last Admin: 02/18/20 08:46 Dose: 50 mg Morphine Sulfate (Morphine Inj (Syringe))*) 2 mg IV Q4H PRN PRN Reason: PAIN - SEVERE Last Admin: 02/18/20 06:55 Dose: 2 mg Multivitamins/Minerals (Theragran/Minerals Tab*) 1 tab PO DAILY [facility] Last Admin: 02/18/20 08:48 Dose: 1 tab Oxcarbazepine (Trileptal Tab(*)) 300 mg PO BID [facility] Last Admin: 02/18/20 08:48 Dose: 300 mg Vital Signs - 8 hr 02/18/20 02/18/20 02/18/20 03:09 06:55 07:15 Temperature 97.6 F 98.6 F Pulse Rate 60 60 Respiratory 20 16 18 Rate Blood Pressure 123/78 136/85 (mmHg) O2 Sat by Pulse 98 100 Oximetry 02/18/20 08:06 Temperature Pulse Rate Respiratory 20 Rate Blood Pressure (mmHg) O2 Sat by Pulse Oximetry Oxygen Devices in Use Now: None Appearance: Elderly gentleman sitting up in bed, appearing stated age. pt is watching TV and reading newspaper. Does not appear to be in any distress. Eyes: No Scleral Icterus, PERRLA Ears/Nose/Mouth/Throat: NL Teeth, Lips, Gums, Clear Oropharnyx, Mucous Membranes Moist Neck: NL Appearance and Movements; NL JVP, Trachea Midline, No Thyroid Enlargement, Masses Respiratory: Symmetrical Chest Expansion and Respiratory Effort, Clear to Auscultation, - - Shallow but clear respirations in all lung fieldss Cardiovascular: NL Sounds; No Murmurs; No JVD, RRR, No Edema Abdominal: NL Sounds; No Tenderness; No Distention, No Hepatosplenomegaly Lymphatic: No Cervical Adenopathy Extremities: No Edema, No Clubbing, Cyanosis Skin: No Rash or Ulcers, No Nodules or Sclerosis Neurological: Alert and Oriented x 3, NL Sensation, NL Muscle Strength and Tone Result Diagrams: 02/18/20 09:26 02/18/20 09:26 Assess/Plan/Problems-Billing Assessment: - Patient Problems (1) Pulmonary embolism Current Visit: Yes Comment: -Saddle Embolism -Heparin IV -Dyspnea relieved by Morphine and oxygen. -Elevated troponin level (0.57) likely related to PE due to right sided heart strain consistant with CTA findings. (2) HTN (hypertension) Current Visit: Yes Comment: -Continue home dose metoprolol, Lisinopril (3) Weakness of right side of body Current Visit: Yes Comment: Pt reports progressively worsening problem overt the past year. Pt has worked with PT in the past. Will obtain PT consult before DC. -has appointment with Dr. Barragan (4) HLD (hyperlipidemia) Current Visit: Yes Comment: -Continue Atorvastatin (5) CAD (coronary artery disease) Current Visit: Yes Comment: -EF 50-55% -Atorvastatin (6) DVT prophylaxis Current Visit: Yes Comment: -IV heparin for PE (7) Full code status Current Visit: Yes Status and Disposition: Guarded
[2020-02-18] MEDS ORDERED: Artificial Tears* 15 ML BTL BOTH EYES PRN (11:28)
[2020-02-18] MEDS: Atorvastatin* 80 MG TAB PO SCH (19:55)
[2020-02-19] MEDS: Heparin DRIP 25,000 UNITS(*) 25,000 UNITS/500 ML BAG IV SCH (01:41)
[2020-02-19 06:38] LABS: ABS Basophils 0.1 10^3/ul (0-0.2); ABS Eosinophils 0.3 10^3/ul (0-0.6); ABS Lymphocytes 0.9 10^3/ul (1.0-4.8); ABS Monocytes 0.6 10^3/ul (0-0.8); ABS Neutrophils 4.8 10^3/ul (1.5-7.7); Eosinophil % 4.6 %; Hematocrit 37 % (42-52); Hemoglobin 12.9 g/dL (14.0-18.0); Lymphocyte % 13.4 %; Mean Corpuscular HGB Conc 35 g/dL (31-36); Mean Corpuscular Hemoglobin 35 pg (27-31); Mean Corpuscular Volume 100 fL (80-94); Mean Platelet Volume 7.2 fL (7.4-10.4); Platelet Count 176 10^3/uL (150-450); Red Blood Count 3.74 10^6 /uL (4.18-5.48); Red Cell Distribution Width 14 % (10-15); White Blood Count 6.7 10^3/uL (3.5-10.8)
[2020-02-19 06:47] LABS: Blood Urea Nitrogen 14 mg/dL (6-24); EGFR African American 112.4 (>60); EGFR Non-African American 92.9 (>60)
--- NOTE | 2020-02-19 09:13 | PN ---
Subjective Date of Service: 02/19/20 Interval History: 74 year old man with DVT/PE after long car ride. Chest pain is improving and mild. Not short of breath at rest. Appetite is good. Has had 1 year right leg and arm weakness. 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 Family History: Unchanged from Admission Social History: Unchanged from Admission Past Medical History: Unchanged from Admission Objective Active Medications: Aspirin (Aspirin 81 Mg Chew Tab*) 81 mg PO QAM [facility] Last Admin: 02/18/20 08:46 Dose: 81 mg Atorvastatin Calcium (Lipitor*) 80 mg PO 2100 [facility] Last Admin: 02/18/20 19:55 Dose: 80 mg Clopidogrel Bisulfate (Plavix Tab*) 75 mg PO DAILY [facility] Last Admin: 02/18/20 08:46 Dose: 75 mg Heparin Sodium (Porcine) (Heparin Vial(*)) 0 units IV .FOR HEPARIN BOLUSES [facility] Last Admin: 02/17/20 19:23 Dose: 4,000 units Heparin Sodium/Dextrose (Heparin Drip 25,000 Units(*)) 25,000 units in 500 mls @ 0 mls/hr IV PER RATE [facility]; Protocol Last Admin: 02/19/20 01:41 Dose: 15 mls/hr Lisinopril (Prinivil Tab*) 10 mg PO DAILY [facility] Last Admin: 02/18/20 08:47 Dose: 10 mg Metoprolol Succinate (Toprol Xl Tab*) 50 mg PO DAILY [facility] Last Admin: 02/18/20 08:46 Dose: 50 mg Morphine Sulfate (Morphine Inj (Syringe))*) 2 mg IV Q4H PRN PRN Reason: PAIN - SEVERE Last Admin: 02/18/20 13:38 Dose: 2 mg Multivitamins/Minerals (Theragran/Minerals Tab*) 1 tab PO DAILY [facility] Last Admin: 02/18/20 08:48 Dose: 1 tab Oxcarbazepine (Trileptal Tab(*)) 300 mg PO BID [facility] Last Admin: 02/18/20 19:55 Dose: 300 mg Polyvinyl Alcohol (Polyvinyl Alcohol 1.4% Opth*) 1 drop BOTH EYES Q2H PRN PRN Reason: DRY EYE Vital Signs - 8 hr 02/19/20 02/19/20 03:56 08:35 Temperature 36.5 C 36.6 C Pulse Rate 56 58 Respiratory 16 16 Rate Blood Pressure 114/79 131/79 (mmHg) O2 Sat by Pulse 98 100 Oximetry Oxygen Devices in Use Now: Nasal Cannula Eyes: No Scleral Icterus, PERRLA Ears/Nose/Mouth/Throat: Clear Oropharnyx Respiratory: Symmetrical Chest Expansion and Respiratory Effort, Clear to Auscultation Cardiovascular: NL Sounds; No Murmurs; No JVD, RRR Abdominal: NL Sounds; No Tenderness; No Distention Extremities: No Edema Skin: No Rash or Ulcers Neurological: Alert and Oriented x 3, - - strength decreased right handgrip and 4/5 right quad/ta/gastroc. 5/5 on left. sensation intact to light touch bilaterally Result Diagrams: 02/19/20 06:06 02/19/20 06:06 Assess/Plan/Problems-Billing Assessment: - Patient Problems (1) Pulmonary embolism Current Visit: Yes Status: Acute Code(s): I26.99 - OTHER PULMONARY EMBOLISM WITHOUT ACUTE COR PULMONALE SNOMED Code(s): 14123121 Comment: Saddle embolism, no RV stain on echo, hemodynamically stable. Heme/ onc consult for anticoag management. (2) CAD (coronary artery disease) Current Visit: Yes Status: Acute Code(s): I25.10 - ATHSCL HEART DISEASE OF [place] CORONARY ARTERY W/O ANG PCTRS SNOMED Code(s): 40722857 Comment: -EF 50-55% -Atorvastatin, aspirin, plavix (3) Weakness of right side of body Current Visit: Yes Status: Acute Code(s): R53.1 - WEAKNESS SNOMED Code(s) : 635236328 Comment: >1 year, with falls and with C spine disease. Will do MRI L spine hereand neuro evluation. Some concern with anticoagulation and falls due to weakness so will obtain imaging here. (4) Full code status Current Visit: Yes Status: Acute Code(s): Z78.9 - OTHER SPECIFIED HEALTH STATUS SNOMED Code(s): 596116097 Status and Disposition: Guarded
[2020-02-19] MEDS: Clopidogrel TAB* 75 MG PO SCH (09:15)
[2020-02-19] MEDS: Multivitamins/Minerals TAB PO SCH (09:15)
[2020-02-19] MEDS: Lisinopril TAB* 10 MG PO SCH (09:16)
[2020-02-19] MEDS: Aspirin 81 mg CHEW TAB* 81 MG TAB.CHEW PO SCH (09:16)
[2020-02-19] MEDS: OXcarbazepine TAB(*) 300 MG PO SCH ×2 (09:16→21:11)
[2020-02-19] MEDS: Metoprolol Succinate XL TAB* 50 MG PO SCH (09:16)
[2020-02-19 10:04] LABS: Troponin I 0.07 ng/mL (<0.03)
[2020-02-19] MEDS: Enoxaparin(*) 80 MG/0.8 ML SYR SUBCUT SCH ×2 (10:07→21:12)
--- NOTE | 2020-02-19 10:18 | CONSULT ---
Consultation - Reason for Consultation Reason for Consultation: saddle PE w +troponin Ordering Provider: Alec Buckley MD Chief Complaint: chest pain History of Present Illness: 74 yo M w an extensive cardiac history (13 stents) presenting with acute onset chest pain and found to have a saddle PE and positive troponin levels. Paresh's history starts ~10 months ago when he was at PT for lower back pain and noted on testing to have significant decline in his muscle strength in his right upper and lower extremities. He was referred to Dr. Reynoso and had a brain MRI (unremarkable) and cervical spine MRI, which did show disease at C4/C5. He was advised to continue his PT in [place] and return for follow up on arrival back in [place]. On 's day he tripped over his dog's leash and fell, sustaining a massive hematoma which required 5 days hospitalization and multiple transfusions. His plavix was held initially, but resumed, and he is currently on aspirin and plavix. He reports he was completely immobile at first , however with aggressive PT was back to riding his bike 5 miles daily and walking in [place] every day. Four weeks ago he drove back to [place] stopping every 3-4 hours to walk the dog. Two weeks ago he tripped with the dog again, making him think that it is actually his weakness and gait instability more than a true mechanical fall. He continues however to be active and has been riding his bike and walking on his treadmill every day. On the day of presentation he walked 20 mins on his treadmill, worked outside in the yard for 3 hours and then walked down to the basement. On his way back up he developed severe nonradiating chest pressure that resolved with nitroglycerin and rest. He had telemed (planned visit) with his PCP and was advised to call 911. In the ER he was noted to have nonspecific ST changes and a positive troponin. CT angiogram (which I have personally reviewed) was notable for a saddle pulmonary embolism (as well as 2 small nonspecific nodules and a left sided infiltrate). He was starting on a heparin drip and we are asked to consult. Of note, his son Db had a DVT and PEs after a minor knee surgery and had a full negative hypercoag work up. Paresh has a personal history of prostate cancer in 2004 sp prostatectomy and his PSA as of 2 weeks ago was undetectable. He has a very remote mild smoking history. He currently is chest pain free. He does report since yesterday evening a numbness of his right foot, but no pain in the leg or swelling. He also has long standing mild macrocytic anemia that is stable over the last 8-10 years. Allergies/Medications Medication: Aspirin (Aspirin 81 Mg Chew Tab*) 81 mg PO QAM [facility] Last Admin: 02/19/20 09:16 Dose: 81 mg Atorvastatin Calcium (Lipitor*) 80 mg PO 2100 [facility] Last Admin: 02/18/20 19:55 Dose: 80 mg Clopidogrel Bisulfate (Plavix Tab*) 75 mg PO DAILY [facility] Last Admin: 02/19/20 09:15 Dose: 75 mg Enoxaparin Sodium (Lovenox(*)) 80 mg SUBCUT Q12H [facility] Last Admin: 02/19/20 10:07 Dose: 80 mg Lisinopril (Prinivil Tab*) 10 mg PO DAILY [facility] Last Admin: 02/19/20 09:16 Dose: 10 mg Metoprolol Succinate (Toprol Xl Tab*) 50 mg PO DAILY [facility] Last Admin: 02/19/20 09:16 Dose: 50 mg Morphine Sulfate (Morphine Inj (Syringe))*) 2 mg IV Q4H PRN PRN Reason: PAIN - SEVERE Last Admin: 02/18/20 13:38 Dose: 2 mg Multivitamins/Minerals (Theragran/Minerals Tab*) 1 tab PO DAILY [facility] Last Admin: 02/19/20 09:15 Dose: 1 tab Oxcarbazepine (Trileptal Tab(*)) 300 mg PO BID [facility] Last Admin: 02/19/20 09:16 Dose: 300 mg Polyvinyl Alcohol (Polyvinyl Alcohol 1.4% Opth*) 1 drop BOTH EYES Q2H PRN PRN Reason: DRY EYE Allergies/Adverse Reactions: Allergies Allergy/AdvReac Type Severity Reaction Status Date / Time DAIRY Allergy Diarrhea Uncoded 09/04/19 09:43 History - Past Medical History Other History: CAD sp multiple stents, most recently 2016. HTN. hyperlip. trigeminal neuralgia. prostate CA. cataract extraction. left total knee replacement. bilateral toe surgery. hernia repair. spermatocelectomy. radical prostatectomy. epididymectomy. tonsillectomy. appendectomy. laminectomy. left hand surgery - Family History Other Family History: son DVT/PE. father leukemia - Social History Other Social History: remote very mild tobacco use as a young adult Review of Systems - Review of Systems General Comments: denies weight loss, blood in stool, current chest pain, BRANDON. +right upper and LE weakness and right foot numbness otherwise neg ROS Physical Exam - Physical Exam Physical Examination: Vital Signs Temp Pulse Resp BP Pulse Ox 97.9 F 58 16 131/79 100 02/19/20 08:35 02/19/20 08:35 02/19/20 08:35 02/19/20 08:35 02/19/20 08:35 lying flat in bed in NAD perr eomi op moist CTA bl s1 s2 nl soft nt no hsm no le edema no BRANDON 4+/5 RUE and RLE strength scattered ecchymoses Results - Lab Results Lab Results: 02/17/20 02/17/20 02/17/20 15:25 15:25 19:01 WBC 7.8 RBC 3.76 L Hgb 13.2 L Hct 37 L MCV 100 H MCH 35 H MCHC 35 RDW 14 Plt Count 141 L MPV 7.1 L Neut % (Auto) 74.5 Lymph % (Auto) 10.6 Rogers % (Auto) 10.6 Eos % (Auto) 3.3 Baso % (Auto) 1.0 Absolute Neuts (auto) 5.8 Absolute Lymphs (auto) 0.8 L Absolute Monos (auto) 0.8 Absolute Eos (auto) 0.3 Absolute Basos (auto) 0.1 Absolute Nucleated RBC 0.0 Nucleated RBC % 0.0 APTT Sodium 137 Potassium 4.4 Chloride 103 Carbon Dioxide 29 Anion Gap 5 BUN 22 Creatinine 0.83 Est GFR ( Amer) 109.3 Est GFR (Non-Af Amer) 90.3 BUN/Creatinine Ratio 26.5 H Glucose 80 Hemoglobin A1c Calcium 9.0 Total Bilirubin 0.40 AST 25 ALT 25 Alkaline Phosphatase 77 Troponin I 0.27 H* 0.57 H* Total Protein 6.2 L Albumin 3.7 Globulin 2.5 Albumin/Globulin Ratio 1.5 Triglycerides Cholesterol LDL Cholesterol HDL Cholesterol 02/17/20 02/18/20 02/18/20 19:01 01:40 09:26 WBC RBC Hgb Hct MCV MCH MCHC RDW Plt Count MPV Neut % (Auto) Lymph % (Auto) Rogers % (Auto) Eos % (Auto) Baso % (Auto) Absolute Neuts (auto) Absolute Lymphs (auto) Absolute Monos (auto) Absolute Eos (auto) Absolute Basos (auto) Absolute Nucleated RBC Nucleated RBC % APTT 35.6 91.7 H Sodium 136 Potassium 4.1 Chloride 103 Carbon Dioxide 30 Anion Gap 3 BUN 15 Creatinine 0.79 Est GFR ( Amer) 115.7 Est GFR (Non-Af Amer) 95.6 BUN/Creatinine Ratio 19.0 Glucose 140 H Hemoglobin A1c Calcium 8.8 Total Bilirubin AST ALT Alkaline Phosphatase Troponin I Total Protein Albumin Globulin Albumin/Globulin Ratio Triglycerides 88 Cholesterol 170 LDL Cholesterol 97 HDL Cholesterol 55.0 02/18/20 02/18/20 02/18/20 09:26 09:26 09:26 WBC 6.5 RBC 3.87 L Hgb 13.3 L Hct 39 L MCV 101 H MCH 34 H MCHC 34 RDW 14 Plt Count 165 MPV 6.8 L Neut % (Auto) 72.4 Lymph % (Auto) 12.7 Rogers % (Auto) 8.2 Eos % (Auto) 5.3 Baso % (Auto) 1.4 Absolute Neuts (auto) 4.7 Absolute Lymphs (auto) 0.8 L Absolute Monos (auto) 0.5 Absolute Eos (auto) 0.3 Absolute Basos (auto) 0.1 Absolute Nucleated RBC 0.0 Nucleated RBC % 0.1 APTT 70.4 H Sodium Potassium Chloride Carbon Dioxide Anion Gap BUN Creatinine Est GFR ( Amer) Est GFR (Non-Af Amer) BUN/Creatinine Ratio Glucose Hemoglobin A1c 5.3 Calcium Total Bilirubin AST ALT Alkaline Phosphatase Troponin I Total Protein Albumin Globulin Albumin/Globulin Ratio Triglycerides Cholesterol LDL Cholesterol HDL Cholesterol 02/18/20 02/19/20 02/19/20 15:51 06:06 06:06 WBC 6.7 RBC 3.74 L Hgb 12.9 L Hct 37 L MCV 100 H MCH 35 H MCHC 35 RDW 14 Plt Count 176 MPV 7.2 L Neut % (Auto) 72.1 Lymph % (Auto) 13.4 Rogers % (Auto) 9.1 Eos % (Auto) 4.6 Baso % (Auto) 0.8 Absolute Neuts (auto) 4.8 Absolute Lymphs (auto) 0.9 L Absolute Monos (auto) 0.6 Absolute Eos (auto) 0.3 Absolute Basos (auto) 0.1 Absolute Nucleated RBC 0.0 Nucleated RBC % 0.0 APTT 57.2 H Sodium Potassium Chloride Carbon Dioxide Anion Gap BUN 14 Creatinine 0.81 Est GFR ( Amer) 112.4 Est GFR (Non-Af Amer) 92.9 BUN/Creatinine Ratio Glucose Hemoglobin A1c Calcium Total Bilirubin AST ALT Alkaline Phosphatase Troponin I 0.07 H* Total Protein Albumin Globulin Albumin/Globulin Ratio Triglycerides Cholesterol LDL Cholesterol HDL Cholesterol Assessment and Plan Impression: 74 yo M w CAD on dual antiplatelet agents w a new saddle PE. It is difficult to call this provoked given his fully mobile nature over the last 6 weeks ( despite being immobilized in mid November). Regardless, this was a massive PE with positive troponins and so I would recommend life long anticoagulation. The question of anticoagulant is the harder. I am very concerned about his progressive neurological decline and recent falling. Given this I do NOT feel that NOACs are the best option right now. If that improves or he starts reliably using an assist device we could reconsider. For now I would recommend BID lovenox for the next 3 weeks, and then could either go to coumadin or daily lovenox. He is hesitant to do coumadin and his is a nurse who could give him lovenox. He will discuss with his paediatric thoracic physician if he will still require dual antiplatelet agents in the setting of full dose anticoagulation and falls. I would also like to get a RLE doppler given his new numbness and PE. Finally , I would recommend inpatient neurology consultation to evaluate his progressive decline and falls of unclear etiology. If this is felt to be related to spinal stenosis which requires surgical intervention, this should be delayed for 3 months unless felt to be emergent.
[2020-02-19] MEDS ORDERED: Acetaminophen TAB* 325 MG PO ONE (18:29)
[2020-02-19] MEDS: Atorvastatin* 80 MG TAB PO SCH (21:11)
[2020-02-20] MEDS ORDERED: Acetaminophen TAB* 325 MG ONE (07:26)
[2020-02-20 07:36] LABS: ABS Basophils 0.1 10^3/ul (0-0.2); ABS Eosinophils 0.3 10^3/ul (0-0.6); ABS Lymphocytes 0.8 10^3/ul (1.0-4.8); ABS Monocytes 0.7 10^3/ul (0-0.8); ABS Neutrophils 5.5 10^3/ul (1.5-7.7); Eosinophil % 3.5 %; Hematocrit 39 % (42-52); Hemoglobin 13.7 g/dL (14.0-18.0); Lymphocyte % 11.4 %; Mean Corpuscular HGB Conc 35 g/dL (31-36); Mean Corpuscular Hemoglobin 35 pg (27-31); Mean Corpuscular Volume 99 fL (80-94); Mean Platelet Volume 7.4 fL (7.4-10.4); Platelet Count 217 10^3/uL (150-450); Red Blood Count 3.95 10^6 /uL (4.18-5.48); Red Cell Distribution Width 14 % (10-15); White Blood Count 7.4 10^3/uL (3.5-10.8)
[2020-02-20] MEDS: Clopidogrel TAB* 75 MG PO SCH (07:42)
[2020-02-20] MEDS: Metoprolol Succinate XL TAB* 50 MG PO SCH (07:42)
[2020-02-20] MEDS: Multivitamins/Minerals TAB PO SCH (07:42)
[2020-02-20] MEDS: Lisinopril TAB* 10 MG PO SCH (07:43)
[2020-02-20] MEDS: OXcarbazepine TAB(*) 300 MG PO SCH ×2 (07:43→21:10)
[2020-02-20] MEDS: Aspirin 81 mg CHEW TAB* 81 MG TAB.CHEW PO SCH (07:49)
[2020-02-20] MEDS: Enoxaparin(*) 80 MG/0.8 ML SYR SUBCUT SCH ×2 (10:08→21:10)
--- NOTE | 2020-02-20 12:16 | PN ---
Subjective Date of Service: 02/20/20 Interval History: 74 year old man with RLE DVT/PE he has right leg pain about the knee and ankle with slight numbness, has has 12+ months right leg weakness which is unchanged. Ice helps, not worse with weight bearing. No chest pain or trouble breathing. Family History: Unchanged from Admission Social History: Unchanged from Admission Past Medical History: Unchanged from Admission Objective Active Medications: Acetaminophen (Tylenol Tab*) 650 mg PO Q4H PRN PRN Reason: PAIN-MILD/TEMP >/= 100.4 Aspirin (Aspirin 81 Mg Chew Tab*) 81 mg PO QAM [facility] Last Admin: 02/20/20 07:49 Dose: 81 mg Atorvastatin Calcium (Lipitor*) 80 mg PO 2100 [facility] Last Admin: 02/19/20 21:11 Dose: 80 mg Clopidogrel Bisulfate (Plavix Tab*) 75 mg PO DAILY [facility] Last Admin: 02/20/20 07:42 Dose: 75 mg Enoxaparin Sodium (Lovenox(*)) 80 mg SUBCUT Q12H [facility] Last Admin: 02/20/20 10:08 Dose: 80 mg Lisinopril (Prinivil Tab*) 10 mg PO DAILY [facility] Last Admin: 02/20/20 07:43 Dose: 10 mg Metoprolol Succinate (Toprol Xl Tab*) 50 mg PO DAILY [facility] Last Admin: 02/20/20 07:42 Dose: 50 mg Morphine Sulfate (Morphine Inj (Syringe))*) 2 mg IV Q4H PRN PRN Reason: PAIN - SEVERE Last Admin: 02/18/20 13:38 Dose: 2 mg Multivitamins/Minerals (Theragran/Minerals Tab*) 1 tab PO DAILY [facility] Last Admin: 02/20/20 07:42 Dose: 1 tab Oxcarbazepine (Trileptal Tab(*)) 300 mg PO BID [facility] Last Admin: 02/20/20 07:43 Dose: 300 mg Polyvinyl Alcohol (Polyvinyl Alcohol 1.4% Opth*) 1 drop BOTH EYES Q2H PRN PRN Reason: DRY EYE Vital Signs - 8 hr 02/20/20 02/20/20 02/20/20 07:15 08:00 11:15 Temperature 36.5 C 36.5 C Pulse Rate 72 66 Respiratory 14 16 16 Rate Blood Pressure 107/81 109/65 (mmHg) O2 Sat by Pulse 100 100 Oximetry Oxygen Devices in Use Now: None, Nasal Cannula Appearance: no distress Eyes: PERRLA Ears/Nose/Mouth/Throat: NL Teeth, Lips, Gums, Mucous Membranes Moist Respiratory: Symmetrical Chest Expansion and Respiratory Effort, Clear to Auscultation Cardiovascular: NL Sounds; No Murmurs; No JVD, RRR Abdominal: NL Sounds; No Tenderness; No Distention Extremities: - - Right knee and ankle trace edema and warmth, non tender Skin: No Rash or Ulcers Neurological: Alert and Oriented x 3 Result Diagrams: 02/20/20 06:45 02/19/20 06:06 Assess/Plan/Problems-Billing Assessment: - Patient Problems (1) Pulmonary embolism Current Visit: Yes Status: Acute Code(s): I26.99 - OTHER PULMONARY EMBOLISM WITHOUT ACUTE COR PULMONALE SNOMED Code(s): 30536140 Comment: Saddle embolism, no RV stain on echo, hemodynamically stable. Appreciate Heme/onc consult for anticoag management. Continue lovenox [address] fu [address] Redmond for care home plans. (2) CAD (coronary artery disease) Current Visit: Yes Status: Acute Code(s): I25.10 - ATHSCL HEART DISEASE OF [place] CORONARY ARTERY W/O ANG PCTRS SNOMED Code(s): 21475642 Comment: Discussed with his primary insurance examiner, Dr Job Farooq ([place] ), he is >5 yrs out from PCI and since he will be anticoagulated, he recommends stopping plavix and continue ASA alone. Continue atorvastatin. (3) Weakness of right side of body Current Visit: Yes Status: Acute Code(s): R53.1 - WEAKNESS SNOMED Code(s) : 056696820 Comment: >1 year, with falls and with C spine disease. Will do MRI T/L spine and brain here. Some concern with anticoagulation and falls due to weakness so will obtain imaging here. Has neuro appt and Dr Jarvis will arrange outpatient EMG. (4) Full code status Current Visit: Yes Status: Acute Code(s): Z78.9 - OTHER SPECIFIED HEALTH STATUS SNOMED Code(s): 546955667 Status and Disposition: Guarded
[2020-02-20] MEDS: Atorvastatin* 80 MG TAB PO SCH (21:10)
[2020-02-20] MEDS: Acetaminophen TAB* 325 MG PO PRN (23:13)
[2020-02-21] MEDS: Acetaminophen TAB* 325 MG PO PRN ×3 (06:29→22:50)
--- NOTE | 2020-02-21 07:06 | PN ---
Hospitalist Progress Note Date of Service: 02/21/20 Received phone call for worsening R knee pain and swelling suspect r/t DVT will check RLE U/S to eval if any extension occuring of the clot. Discussed with attending. encouraged elevation of the lower extremity, Distal csm check intact , good pulse, good cap refil,
[2020-02-21 07:11] LABS: ABS Basophils 0.1 10^3/ul (0-0.2); ABS Eosinophils 0.2 10^3/ul (0-0.6); ABS Lymphocytes 0.7 10^3/ul (1.0-4.8); Eosinophil % 2.6 %; Hematocrit 38 % (42-52); Hemoglobin 12.9 g/dL (14.0-18.0); Mean Corpuscular HGB Conc 34 g/dL (31-36); Mean Corpuscular Hemoglobin 34 pg (27-31); Mean Corpuscular Volume 100 fL (80-94); Mean Platelet Volume 7.3 fL (7.4-10.4); Nucleated Red Blood Cells % 0.1; Platelet Count 222 10^3/uL (150-450); Red Blood Count 3.78 10^6 /uL (4.18-5.48); Red Cell Distribution Width 14 % (10-15); White Blood Count 7.9 10^3/uL (3.5-10.8)
[2020-02-21] MEDS: Metoprolol Succinate XL TAB* 50 MG PO SCH (07:49)
[2020-02-21] MEDS: OXcarbazepine TAB(*) 300 MG PO SCH ×2 (07:49→21:23)
[2020-02-21] MEDS: Lisinopril TAB* 10 MG PO SCH (07:50)
[2020-02-21] MEDS: Aspirin 81 mg CHEW TAB* 81 MG TAB.CHEW PO SCH (07:51)
[2020-02-21] MEDS: Multivitamins/Minerals TAB PO SCH (07:51)
[2020-02-21] MEDS: Enoxaparin(*) 80 MG/0.8 ML SYR SUBCUT SCH ×2 (10:03→21:22)
--- NOTE | 2020-02-21 12:04 | PN ---
Subjective Date of Service: 02/21/20 Interval History: . Patient reports he is feeling "much better with less knee pain". Still reports it feels a little more swollen than what it has been. he states this seem to happen after he started PT with gentle knee exercises. He denies any CP, SOB. No fever or chills. feels steady on his feet. Family History: Unchanged from Admission Social History: Unchanged from Admission Past Medical History: Unchanged from Admission Objective Active Medications: Acetaminophen (Tylenol Tab*) 650 mg PO Q4H PRN PRN Reason: PAIN-MILD/TEMP >/= 100.4 Last Admin: 02/21/20 06:29 Dose: 650 mg Aspirin (Aspirin 81 Mg Chew Tab*) 81 mg PO QAM [facility] Last Admin: 02/21/20 07:51 Dose: 81 mg Atorvastatin Calcium (Lipitor*) 80 mg PO 2100 [facility] Last Admin: 02/20/20 21:10 Dose: 80 mg Enoxaparin Sodium (Lovenox(*)) 80 mg SUBCUT Q12H [facility] Last Admin: 02/21/20 10:03 Dose: 80 mg Lisinopril (Prinivil Tab*) 10 mg PO DAILY [facility] Last Admin: 02/21/20 07:50 Dose: 10 mg Metoprolol Succinate (Toprol Xl Tab*) 50 mg PO DAILY [facility] Last Admin: 02/21/20 07:49 Dose: 50 mg Morphine Sulfate (Morphine Inj (Syringe))*) 2 mg IV Q4H PRN PRN Reason: PAIN - SEVERE Last Admin: 02/18/20 13:38 Dose: 2 mg Multivitamins/Minerals (Theragran/Minerals Tab*) 1 tab PO DAILY [facility] Last Admin: 02/21/20 07:51 Dose: 1 tab Oxcarbazepine (Trileptal Tab(*)) 300 mg PO BID [facility] Last Admin: 02/21/20 07:49 Dose: 300 mg Polyvinyl Alcohol (Polyvinyl Alcohol 1.4% Opth*) 1 drop BOTH EYES Q2H PRN PRN Reason: DRY EYE Vital Signs - 8 hr 02/21/20 02/21/20 02/21/20 08:00 08:12 11:47 Temperature 98.1 F 98.1 F Pulse Rate 66 65 Respiratory 20 20 20 Rate Blood Pressure 116/70 133/78 (mmHg) O2 Sat by Pulse 97 99 Oximetry Oxygen Devices in Use Now: None Appearance: well developed 74 yo male A+O x3 in NAD Eyes: PERRLA Ears/Nose/Mouth/Throat: Mucous Membranes Moist Respiratory: Symmetrical Chest Expansion and Respiratory Effort, Clear to Auscultation Cardiovascular: NL Sounds; No Murmurs; No JVD, RRR, No Edema Abdominal: NL Sounds; No Tenderness; No Distention Extremities: No Clubbing, Cyanosis, - - right knee appears mild-moderately swollen, no redness noted. Full ROM. sensation to LE intact Skin: No Rash or Ulcers, No Nodules or Sclerosis Neurological: Alert and Oriented x 3 Lines/Tubes/Other Access: Clean, Dry and Intact Peripheral IV Nutrition: Taking PO's Result Diagrams: 02/21/20 06:37 02/21/20 06:37 Assess/Plan/Problems-Billing Assessment: 74 year old man with a PMH of extensive cardiology history s/p 13 stents, most recent [place] 2016 who presented to the [facility] on 02/16 with c/o Chest Pain admitted for non-STEMI [place] with elevated troponin, found to have saddle PE and RLE DVT. 12+ months right leg weakness which is unchanged. - Patient Problems (1) Pulmonary embolism Comment: Saddle embolism, no RV stain on echo, hemodynamically stable. Appreciate Heme/onc consult for anticoag management. Continue lovenox [address] fu [address] Redmond for remote computer terminal operator plans. Nursing staff to teach patient how to inject lovenox (2) DVT (deep venous thrombosis) Comment: - right LE DVT - U/S repeated today after patient c/o of increasing pain in right knee - u/s shows persistant DVT with now small amount of fluid in the popiteal fossa. He reports much improvement throughout the day today with elevation. Is able to ambulate. - continue lovenox (3) CAD (coronary artery disease) Comment: [facility] discussed on [facility]/19 with his primary assembler musical equipment, Dr Job Farooq ([place]), he is >5 yrs out from PCI and since he will be anticoagulated, he recommends stopping plavix and continue ASA alone. Continue atorvastatin. Elevated troponins trending down -> thought to be secondary to PE (4) Weakness of right side of body Comment: >1 year, with falls and with C spine disease. MRI T/L spine and brain - Btain showing no acute intacranial process, lower lumbar MRI showing moderate to severe multilevel degenerative disc disease with neural foraminal narrowing. - Some concern with anticoagulation and falls due to weakness imaging was obtain here. - Has neuro appt next week and Dr Jarvis will arrange outpatient EMG. - PT eval (5) HLD (hyperlipidemia) Comment: -Continue Atorvastatin (6) HTN (hypertension) Comment: -Continue home dose metoprolol, Lisinopril (7) DVT prophylaxis Comment: -Lovenox (8) Full code status Status and Disposition: inpatient. stable. Plan for DC home - possibly tomorrow. Lovenox teaching today. Continue to monitor right knee overnight
[2020-02-21] MEDS: Atorvastatin* 80 MG TAB PO SCH (21:22)
[2020-02-22 06:47] LABS: ABS Eosinophils 0.3 10^3/ul (0-0.6); ABS Lymphocytes 0.9 10^3/ul (1.0-4.8); ABS Monocytes 0.6 10^3/ul (0-0.8); ABS Neutrophils 3.1 10^3/ul (1.5-7.7); Eosinophil % 5.8 %; Hematocrit 36 % (42-52); Hemoglobin 12.6 g/dL (14.0-18.0); Lymphocyte % 17.7 %; Mean Corpuscular HGB Conc 35 g/dL (31-36); Mean Corpuscular Hemoglobin 35 pg (27-31); Mean Corpuscular Volume 99 fL (80-94); Mean Platelet Volume 7.5 fL (7.4-10.4); Platelet Count 240 10^3/uL (150-450); Red Cell Distribution Width 13 % (10-15); White Blood Count 4.9 10^3/uL (3.5-10.8)
[2020-02-22 07:54] VITALS: BP 131/76
[2020-02-22] MEDS: OXcarbazepine TAB(*) 300 MG PO SCH (09:13)
[2020-02-22] MEDS: Lisinopril TAB* 10 MG PO SCH (09:14)
[2020-02-22] MEDS: Aspirin 81 mg CHEW TAB* 81 MG TAB.CHEW PO SCH (09:14)
[2020-02-22] MEDS: Metoprolol Succinate XL TAB* 50 MG PO SCH (09:14)
[2020-02-22] MEDS: Multivitamins/Minerals TAB PO SCH (09:14)
[2020-02-22] MEDS: Enoxaparin(*) 80 MG/0.8 ML SYR SUBCUT SCH (09:16)
--- NOTE | 2020-02-22 09:25 | DCNOTE ---
Subjective Date of Service: 02/22/20 Interval History: patient reports he feels ready to go home. Much improvement of right knee swelling in the last 24 hours. no further pain. continues to have some mild swelling. Elevated his knee which is helping. Denies SOB. No cough. No CP. denies fever or chills. No LE redness, or calf tenderness. Family History: Unchanged from Admission Social History: Unchanged from Admission Past Medical History: Unchanged from Admission Objective Active Medications: Acetaminophen (Tylenol Tab*) 650 mg PO Q4H PRN PRN Reason: PAIN-MILD/TEMP >/= 100.4 Last Admin: 02/21/20 22:50 Dose: 650 mg Aspirin (Aspirin 81 Mg Chew Tab*) 81 mg PO QAM [facility] Last Admin: 02/22/20 09:14 Dose: 81 mg Atorvastatin Calcium (Lipitor*) 80 mg PO 2100 [facility] Last Admin: 02/21/20 21:22 Dose: 80 mg Enoxaparin Sodium (Lovenox(*)) 80 mg SUBCUT Q12H [facility] Last Admin: 02/22/20 09:16 Dose: 80 mg Lisinopril (Prinivil Tab*) 10 mg PO DAILY [facility] Last Admin: 02/22/20 09:14 Dose: 10 mg Metoprolol Succinate (Toprol Xl Tab*) 50 mg PO DAILY [facility] Last Admin: 02/22/20 09:14 Dose: 50 mg Morphine Sulfate (Morphine Inj (Syringe))*) 2 mg IV Q4H PRN PRN Reason: PAIN - SEVERE Last Admin: 02/18/20 13:38 Dose: 2 mg Multivitamins/Minerals (Theragran/Minerals Tab*) 1 tab PO DAILY [facility] Last Admin: 02/22/20 09:14 Dose: 1 tab Oxcarbazepine (Trileptal Tab(*)) 300 mg PO BID [facility] Last Admin: 02/22/20 09:13 Dose: 300 mg Polyvinyl Alcohol (Polyvinyl Alcohol 1.4% Opth*) 1 drop BOTH EYES Q2H PRN PRN Reason: DRY EYE Vital Signs - 8 hr 02/22/20 02/22/20 04:10 07:15 Temperature 97.5 F 97.6 F Pulse Rate 65 60 Respiratory 20 16 Rate Blood Pressure 111/72 131/76 (mmHg) O2 Sat by Pulse 97 98 Oximetry Oxygen Devices in Use Now: None Appearance: well developed elderly male A+ox3 in NAD Eyes: No Scleral Icterus, PERRLA Ears/Nose/Mouth/Throat: NL Teeth, Lips, Gums, Mucous Membranes Moist Neck: NL Appearance and Movements; NL JVP Respiratory: Symmetrical Chest Expansion and Respiratory Effort, Clear to Auscultation Cardiovascular: NL Sounds; No Murmurs; No JVD, RRR, No Edema Abdominal: NL Sounds; No Tenderness; No Distention Extremities: - - right knee mildly swollen - much improved compared to yesterday. Full ROM in Knee, no redness. no calf tenderness, redness. Skin: No Rash or Ulcers, No Nodules or Sclerosis Neurological: Alert and Oriented x 3, NL Sensation, NL Muscle Strength and Tone Result Diagrams: 02/22/20 05:52 02/21/20 06:37 Assess/Plan/Problems-Billing Assessment: 74 year old man with a PMH of extensive cardiology history s/p 13 stents, most recent [place] 2016 who presented to the [facility] on 02/16 with c/o Chest Pain admitted for non-STEMI [place] with elevated troponin, found to have saddle PE and RLE DVT. 12+ months right leg weakness which is unchanged. - Patient Problems (1) Pulmonary embolism Comment: Saddle embolism, no RV stain on echo, hemodynamically stable. Not requiring supplemental oxygen. No SOB Appreciate Heme/onc consult for anticoag management. Continue lovenox 3 weeks ( until 03/11) and fu with Dr Redmond for intermediate project manager plans. Patient is comfortable giving injections of lovenox and his is a retired nurse- (2) DVT (deep venous thrombosis) Comment: - right LE DVT - U/S repeated 02/20 after patient c/o of increasing pain in right knee - u/s shows persistant DVT with now small amount of fluid in the popiteal fossa. He reports much improvement throughout thr day yesterday and overnight with elevation. Is able to ambulate. Pt and I ambulated together in hallway - continue lovenox (3) CAD (coronary artery disease) Comment: [facility] discussed on 02/19 with his primary farm management teacher, Dr Job Farooq ([place]), he is >5 yrs out from PCI and since he will be anticoagulated, he recommends stopping plavix and continue ASA alone. Continue atorvastatin. Elevated troponins trending down -> thought to be secondary to PE follow up with primary farm management teacher within 1 month (4) Weakness of right side of body Comment: >1 year, with falls and with C spine disease. MRI T/L spine and brain - Btain showing no acute intacranial process, lower lumbar MRI showing moderate to severe multilevel degenerative disc disease with neural foraminal narrowing. - Some concern with anticoagulation and falls due to weakness imaging was obtain here. I walked with patient this morning and he is stable with ambulation - Has neuro appt next week and Dr Jarvis will arrange outpatient EMG. - PT eval (5) HLD (hyperlipidemia) Comment: -Continue Atorvastatin (6) HTN (hypertension) Comment: -Continue home dose metoprolol, Lisinopril (7) DVT prophylaxis Comment: -Lovenox (8) Full code status Status and Disposition: inpatient. stable. Stable for DC to home
--- NOTE | 2020-02-22 12:45 | DS ---
CC: Dr. Prince; Dr. Job Farooq* DISCHARGE SUMMARY: DATE OF ADMISSION: 02/17/20 DATE OF DISCHARGE: 02/22/20 HOSPITAL STATUS: Inpatient. PROVIDER: Jesus Manuel Tilley NP ATTENDING PHYSICIAN: Dr. Evita Hernandez* (report dictated by Jesus Manuel Tilley NP ). PRIMARY CARE PROVIDER: Dr. Prince. PRIMARY LAST PICKER: [facility] in [place], Dr. Job Farooq. CONSULTING COMMISSION SALES ASSOCIATE: Dr. Lacey Redmond. DISCHARGE DIAGNOSES: 1. Saddle pulmonary embolism. 2. Right lower extremity deep vein thrombosis. 3. Elevated cardiac enzymes thought to be secondary to pulmonary embolism. SECONDARY DIAGNOSES: 1. History of right sided upper and lower extremity weakness. 2. History of coronary artery disease, status post 13 stents with most recent myocardial infarction in 2016. 3. Hypertension. 4. Hyperlipidemia. 5. History of trigeminal neuralgia. 6. History of prostate cancer. DISCHARGE MEDICATIONS: 1. Magnesium oxide 250 mg p.o. daily. 2. Folic acid 1 mg p.o. daily. 3. Multivitamin with minerals 1 tab p.o. daily. 4. Nitroglycerin 0.4 mg sublingual q.5 minutes p.r.n. 5. Restasis 0.05% ophth 1 drop both eyes b.i.d. 6. Vitamin B12 1000 mcg sublingual q.a.m. 7. Aspirin 81 mg p.o. q.a.m. 8. Lisinopril 10 mg p.o. daily. 9. Lipitor 80 mg p.o. daily. 10. Trileptal 300 mg p.o. b.i.d. 11. Metoprolol succinate XL 50 mg p.o. daily. New Medication: Lovenox 80 mg subcu q.12 hours injections for a total of 3 weeks. Last dose should be on 03/11/20, then the patient will be transitioned to another anticoagulation, which will be determined at followup hematology visit. Medications Discontinued: Plavix 75 mg p.o. daily. HISTORY OF PRESENT ILLNESS AND HOSPITAL COURSE: Please see history and physical by Dr. Shanta Leal for full admission details, but in summary, this is a 74-year- old male who has an extensive cardiac history, who presented to the emergency department on 02/17/20 with complaint of chest pain, was found to have elevated cardiac enzymes with a history of recent long distance travel, in which he underwent a chest, thorax CTA, which revealed a massive pulmonary embolism including a saddle embolus. Enlargement of the right ventricle of the heart was visualized on the CTA, however, followup transthoracic echocardiogram did not show right heart strain.. The CTA also showed a few small lung nodules. Recommended to followup with primary care provider for repeat CT. Please see CTA report for guided recommendations. The patient also underwent a venous Doppler study of the right lower extremity showing a deep vein thrombosis noted within the inferior extent of the right femoral vein and the popliteal veins as well as within the calf veins. Also showing superficial thrombophlebitis. The patient was seen in consultation by entry operator, Dr. Lacey Redmond, who recommended the patient have 3 weeks of Lovenox b.i.d. and then to either go on Coumadin or daily Lovenox. He is to follow up with Hematology as an outpatient to determine what he will transition on for anticoagulation. There was some question due to his 2 recent falls and report of progressive neurological decline with right upper and lower weakness of putting the patient on NOACs. In regards to the patient's 1 year of reported history of right upper and right lower extremity weakness, the patient reports he has had 2 recent falls, in which he was walking his dog both times and states it is possible that he tripped on the leash and the second time possible tripped on the side walk. He has been evaluated by Physical Therapy in the hospital and steady on his feet. I walked with the patient this morning and he appears to have a mild limping gait, but he is steady on his feet. It was discussed with the patient for him to not walk his dog and to be very careful with ambulation and movement. The patient has a evaluation by Neurology this week. He did undergo a brain MRI as well as a thoracic and lumbar MRI. The brain MRI showed no acute intracranial abnormality with mild chronic small vessel ischemic disease likely as well as frothy air fluid levels in the bilateral maxillary and sphenoid sinuses, correlate with signs of acute sinusitis, in which the patient denies any sinus complaints at this time. Thoracic spine MRI showed no acute abnormality and multilevel degenerative disk disease. Lumbar spine MRI showing multilevel degenerative disk disease with neuroforaminal narrowing. Moderate right and moderate to severe left at L3-L4, moderate to severe right and moderate left at L4 to L5, and moderate right and mild left at L5 to S1. Moderate spinal canal stenosis at L3 to L4, mild at L4 to L5. Again, the patient is going to follow up with Neurology this week. The patient during hospitalization on 02/20/20, developed right knee swelling, in which his venous Doppler study was repeated of the right lower extremity on 02/21/20 showing persistent deep vein thrombosis, superficial thrombophlebitis of the small saphenous vein and simple fluid collection to the popliteal fossa. Over the past 24 hours, this has greatly improved per the patient. As well as on assessment, the knee appears much less swollen this morning. The patient has been elevating his legs and today it appears to be much less swollen and the patient denies any pain. Recommendation to the patient was to continue elevate frequently. He has no noted calf tenderness and has almost full range of motion in the knee. He is noted to have a steady gait with ambulation. The patient is stable for discharge to home. He has been instructed on Lovenox injection teaching as well as his is a retired nurse. The patient has not required supplemental oxygen throughout hospitalization and he has maintained O2 sats between 97% and 100%. He denies any chest pain or shortness of breath. In regards to the patient's elevated cardiac enzymes on admission, his troponin was 0.27, going up to 0.57, then trending down to 0.07. This is thought to be secondary to pulmonary embolism. Echocardiogram showing EF 60% to 65%, again with no right heart strain. DISCHARGE PLAN: 1. Stable for discharge to home. 2. The patient will have b.i.d. Lovenox injections until 03/11/20. He is to follow up with Dr. Lacey Redmond of Hematology. 3. Follow up with primary care provider, Dr. Prince this week. It was instructed the patient needs to call Monday to make an appointment. 4. Follow up with Neurology, a upcoming appointment this week. 5. Follow up with your primary stucco mason within 3 to 4 weeks. 6. Again, please note the patient had noted lung nodules on CT scan, which will need to be followed with the primary care provider. TIME SPENT: Approximately 60 minutes was spent on this discharge. JESUS MANUEL TILLEY, COMPENSATION BUSINESS PARTNER [id number]/[facility] #: [id number] KEN
== END 2020-02-22 10:30 | disposition home or self-care (01) | DRG 176 ==
LOC: ED 14:52 → MEDTELE 17:14
PROVIDERS: ADMIT Hospitalist; ATTEND Internal Medicine
DX: I26.92 Saddle embolus of pulmonary artery without acute cor pulmonale (principal); I82.411 Acute embolism and thrombosis of right femoral vein; I82.431 Acute embolism and thrombosis of right popliteal vein; I82.4Z1 Acute embolism and thrombosis of unspecified deep veins of right distal lower extremity; M51.06 Intervertebral disc disorders with myelopathy, lumbar region; I10 Essential (primary) hypertension; E78.5 Hyperlipidemia, unspecified; G50.0 Trigeminal neuralgia; R91.8 Other nonspecific abnormal finding of lung field; M15.9 Polyosteoarthritis, unspecified; I80.01 Phlebitis and thrombophlebitis of superficial vessels of right lower extremity; M51.16 Intervertebral disc disorders with radiculopathy, lumbar region; M48.061 Spinal stenosis, lumbar region without neurogenic claudication; R53.1 Weakness; Z96.652 Presence of left artificial knee joint; I25.10 Atherosclerotic heart disease of native coronary artery without angina pectoris; R79.89 Other specified abnormal findings of blood chemistry; I25.2 Old myocardial infarction; Z95.5 Presence of coronary angioplasty implant and graft; Z85.46 Personal history of malignant neoplasm of prostate; Z79.899 Other long term (current) drug therapy; Z79.82 Long term (current) use of aspirin; Z90.79 Acquired absence of other genital organ(s); Z87.891 Personal history of nicotine dependence; Z91.011 Allergy to milk products; Z86.12 Personal history of poliomyelitis; Z88.6 Allergy status to analgesic agent; Z88.8 Allergy status to other drugs, medicaments and biological substances; Z88.5 Allergy status to narcotic agent
CPT/HCPCS: 36415; 70551; 71045; 71275; 72146; 72148; 80048; 80053; 80061; 82565; 83036; 84484; 84520; 85025; 85730; 93005; 93306; 99284; A9270-GY; C8929; J1644; J1650; J2270; Q9967

== ENCOUNTER 2020-07-21 15:19 | Observation (INO) ==
[2020-07-21] MEDS ORDERED: NS 0.9% 1000 ml BAG 1,000 ML IV ONE (15:28)
[2020-07-21] MEDS ORDERED: Iodixanol (CONTRAST) 320 MG/ML 100 ML SDV IV ONE (15:44)
[2020-07-21 16:00] LABS: ABS Basophils 0.1 10^3/ul (0-0.2); ABS Eosinophils 0.3 10^3/ul (0-0.6); ABS Lymphocytes 1.3 10^3/ul (1.0-4.8); ABS Monocytes 0.6 10^3/ul (0-0.8); ABS Neutrophils 3.8 10^3/ul (1.5-7.7); Eosinophil % 5.5 %; Hematocrit 41 % (42-52); Lymphocyte % 21.6 %; Mean Corpuscular HGB Conc 34 g/dL (31-36); Mean Corpuscular Hemoglobin 34 pg (27-31); Mean Corpuscular Volume 100 fL (80-94); Mean Platelet Volume 7.4 fL (7.4-10.4); Nucleated Red Blood Cells % 0.1; Platelet Count 259 10^3/uL (150-450); Red Blood Count 4.08 10^6 /uL (4.18-5.48); Red Cell Distribution Width 13 % (10-15); White Blood Count 6.2 10^3/uL (3.5-10.8)
[2020-07-21 16:07] LABS: Activated Partial Thrombo Time 31.9 seconds (26.0-38.0); INR 1.42 (0.82-1.09)
[2020-07-21 16:13] LABS: Troponin I 0.01 ng/mL (<0.03)
[2020-07-21 16:17] LABS: Albumin 4.1 g/dL (3.2-5.2); Albumin/Globulin Ratio 1.9 (1-3); Calcium 8.7 mg/dL (8.6-10.3); EGFR African American 88.1 (>60); EGFR Non-African American 72.8 (>60); Globulin 2.2 g/dL (2-4); HDL Cholesterol 53.5 mg/dL; Potassium 4.4 mmol/L (3.5-5.0); Total Bilirubin 0.5 mg/dL (0.2-1.0); Total Protein 6.3 g/dL (6.4-8.9)
[2020-07-21 17:40] LABS: Urine Appearance Clear; Urine Bilirubin Negative (Negative); Urine Blood Negative (Negative); Urine Color Straw; Urine Glucose Negative (Negative); Urine Ketones Negative (Negative); Urine Nitrite Negative (Negative); Urine Protein Negative (Negative); Urine Urobilinogen Negative (Negative)
[2020-07-21] MEDS ORDERED: Warfarin per PHARMACY **NOTE FOLLOW UP SCH (18:00)
[2020-07-21] MEDS: Enoxaparin 80 MG/0.8 ML SYR SUBCUT SCH (19:21)
[2020-07-22] MEDS: Enoxaparin 80 MG/0.8 ML SYR SUBCUT SCH ×2 (05:39→16:41)
[2020-07-22 06:49] LABS: INR 1.66 (0.82-1.09)
[2020-07-22 16:12] VITALS: BP 109/69
[2020-07-22] MEDS ORDERED: Warfarin DAILY REMINDER **NOTE FOLLOW UP SCH (17:00)
[2020-07-22] MEDS ORDERED: OXCARBAZEPINE PO SCH (21:00)
== END 2020-07-22 17:44 | disposition home or self-care (01) ==
LOC: ED 15:19 → MEDTELE 15:19
PROVIDERS: ADMIT Student in an Organized Health Care Education/Training Program; ATTEND Internal Medicine

== ENCOUNTER 2021-05-20 17:16 | Observation (INO) ==
[2021-05-20 17:43] LABS: ABS Basophils 0.1 10^3/ul (0-0.2); ABS Eosinophils 0.5 10^3/ul (0-0.6); ABS Lymphocytes 1.3 10^3/ul (1.0-4.8); ABS Monocytes 0.8 10^3/ul (0-0.8); ABS Neutrophils 4.6 10^3/ul (1.5-7.7); Eosinophil % 6.4 %; Hematocrit 38 % (42-52); Hemoglobin 13.2 g/dL (14.0-18.0); Lymphocyte % 18.1 %; Mean Corpuscular HGB Conc 35 g/dL (31-36); Mean Corpuscular Hemoglobin 35 pg (27-31); Mean Corpuscular Volume 101 fL (80-94); Mean Platelet Volume 7.9 fL (7.4-10.4); Nucleated Red Blood Cells % 0.1; Platelet Count 228 10^3/uL (150-450); Red Blood Count 3.76 10^6 /uL (4.18-5.48); Red Cell Distribution Width 13 % (10-15); White Blood Count 7.2 10^3/uL (3.5-10.8)
[2021-05-20] MEDS ORDERED: Iodixanol (CONTRAST) 320 MG/ML 100 ML SDV IV ONE (17:44)
[2021-05-20 17:56] LABS: Activated Partial Thrombo Time 41.4 seconds (26.0-38.0); INR 3.46 (0.86-1.15)
[2021-05-20 17:58] LABS: Albumin 3.7 g/dL (3.2-5.2); Albumin/Globulin Ratio 1.5 (1-3); EGFR African American 79.6 (>60); EGFR Non-African American 65.8 (>60); Globulin 2.5 g/dL (2-4); Potassium 4.3 mmol/L (3.5-5.0); Total Bilirubin 0.6 mg/dL (0.2-1.0); Total Protein 6.2 g/dL (6.4-8.9)
[2021-05-20 18:00] LABS: Troponin I 0.01 ng/mL (<0.03)
[2021-05-20 19:49] LABS: Urine Appearance Clear; Urine Bilirubin Negative (Negative); Urine Blood Negative (Negative); Urine Color Straw; Urine Glucose Negative (Negative); Urine Ketones Negative (Negative); Urine Nitrite Negative (Negative); Urine Protein Negative (Negative); Urine Specific Gravity 1.019 (1.002-1.030); Urine Urobilinogen Negative (Negative)
[2021-05-21 01:17] LABS: TSH Ultra Thyroid Stim Horm 2.53 mcIU/mL (0.34-5.60)
[2021-05-21 11:43] VITALS: BP 132/71
== END 2021-05-21 16:40 | disposition home or self-care (01) ==
LOC: MEDTELE 17:16 → ED 17:16 → MEDTELE 05-21 07:45
PROVIDERS: ADMIT Hospitalist; ATTEND Internal Medicine